=== PATIENT | male | born 1980 | race Caucasian/White ===

== ENCOUNTER 2020-08-24 11:25 | Inpatient (IN) ==
[2020-08-24 12:24] LABS: Basophils # (auto) 0.01 K/uL (0-0.2); Basophils % (auto) 0.4 %; Eosinophils # (auto) 0.02 K/uL (0-0.5); Eosinophils % (auto) 0.8 %; Hematocrit (blood only) 21.6 % (42-52); Hemoglobin 7.3 g/dL (14.0-18.0); Mean Corpuscular Hemoglobin 26.1 pg (25-34); Mean Corpuscular Hgb Conc 33.8 g/dL (32-36); Mean Corpuscular Volume 77.1 fL (80-100); Mean Platelet Volume 8.4 fL (7.4-10.4); Monocytes # (auto) 0.15 K/uL (0.11-0.59); Neutrophils # (auto) 2.02 K/uL (1.4-6.5); Neutrophils % (auto) 80.8 %; Platelet Count 152 K/uL (130-400); RDW Coefficient of Variation 15.1 % (11.5-14.5); RDW Standard Deviation 43.8 fL (36.4-46.3)
[2020-08-24 12:45] LABS: Microcytosis Present
[2020-08-24 13:25] LABS: BUN Creatinine Ratio 12.8 (10-20); Calcium 8.3 mg/dl (8.5-10.1); Creatinine Clr Calc Pharmacy 18.4 ml/min; Est GFR (African American) 12.8 ml/min; Potassium 6.1 mmol/L (3.5-5.1)
[2020-08-24] MEDS ORDERED: DEXTROSE 50% 50 ML SYRINGE IV STA (13:28)
[2020-08-24] MEDS ORDERED: CALCIUM GLUCONATE 10% 1,000 MG in SODIUM CHLORIDE 0.9% 50 ML IV STA (13:28)
[2020-08-24] MEDS ORDERED: INSULIN HUMAN REGULAR PER UNIT 5 UNITS in SYRINGE 9.9 ML IV STA (13:28)
[2020-08-24] MEDS ORDERED: SODIUM CHLORIDE 0.9% 1000ML 1,000 ML IV SCH (13:30)
[2020-08-24] MEDS ORDERED: methylPREDNISolone 125 MG/2 ML VIAL IV STA (13:41)
[2020-08-24 14:00] LABS: Appearance Urine Clear (Clear); Bacteria Urine Automated Negative (Negative); Bilirubin Urine Negative (Negative); Blood Urine 3+ (Negative); Cast Urine Automated 0 /lpf (0-5); Color Urine Yellow; Epithelial Cell Urine Auto 0-5 /lpf (0-5); Glucose Urine UA Negative (Negative); Ketones Urine Negative (Negative); Leukocyte Esterase Urine Negative (Negative); Nitrite Urine Negative (Negative); Protein Urine 3+ (Negative); RBC Urine Automated >30 /hpf (0-4); Specific Gravity Urine 1.007 (1.000-1.030); Urobilinogen Urine Negative (Negative); pH Urine 6.5 (4.5-7.5)
[2020-08-24] MEDS ORDERED: methylPREDNISolone 1,000 MG in DEXTROSE 5% 250 ML IV STA (14:35)
--- NOTE | 2020-08-24 14:42 | CT Scan Report ---
CT OF THE ABDOMEN AND PELVIS WITHOUT CONTRAST CLINICAL HISTORY: Acute kidney injury. COMPARISON STUDY: Renal ultrasound February 27, 2015. TECHNIQUE: Axial images of the abdomen and pelvis were obtained without IV contrast. Images were revi ewed in the axial, sagittal, and coronal planes. Automated exposure control was utilized for the toyin dy. A dose lowering technique was utilized adhering to the principles of ALARA. FINDINGS: Imaged portions of the lower chest demonstrate trace bilateral pleural effusions. A hiatal hernia is present. Cardiomegaly is noted. There is decreased attenuation of the cardiac blood pool. N o pneumatosis, free air or portal venous gas is present. Evaluation of the abdomen and pelvis is subo ptimal on this unenhanced exam. Mild splenomegaly is unchanged since renal ultrasound February 27 6. Bladder wall thickening is also unchanged. There is mild symmetric bilateral perinephric infiltrat ion. There is no hydronephrosis. Renal size is normal. No urinary calculi are present. Unenhanced jorge ges of the liver, adrenal glands and pancreas are unremarkable with exception of several calcificatio ns within the pancreas. There is no evidence for a bowel obstruction. The appendix is normal. There i s no abscess. Sigmoid diverticulosis is noted without evidence for acute diverticulitis. No acute fra cture or suspicious lesion is identified within the visualized skeletal structures. IMPRESSION: 1. No urinary calculi or hydronephrosis. Mild symmetric bilateral perinephric infiltration, a nonspec ific finding. 2. Decreased attenuation of the cardiac blood pool which may reflect anemia. 3. Mild anasarca. Trace bilateral pleural effusions. 4. No bowel obstruction. 5. Bladder wall thickening, likely chronic. ACT 112: Negative or not required by law. Electronically signed by: Ezoi Scott M.D. 08/24/2020 2:41 PM
[2020-08-24] MEDS ORDERED: PATIROMER CALCIUM SORBITEX 8.4 GM PACK PO ONE (15:45)
--- NOTE | 2020-08-24 15:54 | History & Physical Report ---
Date of Service August 24, 2020 Assessment & Plan (1) Hematuria, microscopic: Plan: Patient is acute kidney injury with history of chronic kidney disease. Patient is hyperkalemic, hyponatremic, depressed carbon oxide BUN/creatinine of 76 and 5.94 no significant EKG changes but mild peaked T waves. Patient did receive dextrose and insulin in the ER be given patiromer orally. CT abdomen and pelvis does not show obstruction of renal system, renal size is normal and there is mild splenomegally given concern for glomerular nephritis will use daily solumedrol 1000mg Since the patient does make urine and he is not in overt congestive heart failure continuation of intravenous fluids will be undertaken For concern for glomerulonephritis patient has 24-hour urine started, ANCA SPEP Compliment levels, anti gbm, Hepatitis panel and peripheral smear, sent (2) COVID: Plan: Patient Covid test was positive in the ER this is a PCR test patient is asymptomatic and his family is also asymptomatic and they have been vaccinated but the patient has not. 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 Discussed transfusion with the patient and he certainly wants to avoid transfusion if possible he is receiving no symptoms right now from the significant anemia he does have. Unless he develops shortness of breath tachycardia or hypotension we will hold off on transfusion. We will check a hemoglobin in the morning he has type and cross at this time (7) Benign essential hypertension: Plan: continue coreg and amlodipine plus hydralazine History of Present Illness Primary Care Provider: Juan C. 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 Incidentally the patient is also found to be Covid positive Patient otherwise has been feeling his normal self infected and working his normal job which involves construction. He typically has end of the day lower extremity edema he says this may be slightly worse over the last 2 weeks. He occasionally has dark urine which he attributes to being dehydrated from working outside and he feels this usually clears up in the evening when he drinks more liquids. He denies any other sources of blood loss or melanotic stools. He denies any epigastric pain. He has been taking Plaquenil and prednisone for a few years now does not feel he is having a flare of his arthritic symptoms. He denies any Covid related symptoms has not been around anyone with Covid but he also has not been vaccinated. He was in close contact with his parents who also have been vaccinated and are without symptoms. He says he is known he said "low kidney function" since he had his heart condition a few years ago. Allergies Allergy/AdvReac Type Severity Reaction Status Date / Time No Known Allergies Allergy Unverified 08/24/20 14:14 Home Medications Medication Instructions Recorded Confirmed Type aspirin 81 mg chewable tablet 1 tab PO QAM tab 10/30/18 08/24/20 History carvedilol 25 mg tablet 25 mg PO BID #180 tab 01/05/20 08/24/20 Rx amlodipine 10 mg tablet 10 mg PO QAM 08/24/20 08/24/20 History hydralazine 100 mg tablet 100 mg PO BID 08/24/20 08/24/20 History hydroxychloroquine 200 mg tablet 200 mg PO QAM 08/24/20 08/24/20 History (Plaquenil) losartan 25 mg tablet 25 mg PO QAM 08/24/20 08/24/20 History naproxen sodium 220 mg tablet 220 mg PO Q12H PRN 08/24/20 08/24/20 History (Aleve) prednisone 5 mg tablet 5 mg PO QAM 08/24/20 08/24/20 History spironolactone 25 mg tablet 25 mg PO QAM 08/24/20 08/24/20 History Past Med/Surg History Medical History CAD (coronary artery disease) kaitlin scan shows RCA infarct 2016 Hematuria, microscopic Hypertensive emergency Lupus (systemic lupus erythematosus) Smokeless tobacco use Surgical History No significant past surgical history Family History Uncle Myocardial infarction Mother Diabetes Hypertension Father Hypertension Denies family history of Ovarian cancer Prostate cancer Breast cancer Colorectal cancer Social History Smoking Status: Former smoker Second Hand Exposure: Yes; Do You Dip or Chew Tobacco: Yes; Hx Alcohol Use: Yes Alcohol type: hard liquor Hx Substance Use: No Preferred Language: Argentine Communication Ability: Effective Visual Impairment: No Limitations Hearing Ability: Normal Beliefs That Will Affect Care: None marital status: Single Current Living Situation: Alone current occupational status: employed current occupation: Construction Feels Safe at Home: Yes Childhood Exposure to Second-Hand Smoke: No Dental Care, Regularly: No Physical Activity Frequency: 5-6 Times per Week Seatbelt Use: always Sunscreen Use: No Review of Systems Review of Systems: Mild distress and fatigue no headache, no visual changes no speech or swallowing issues no chest pain, pressure or palpitations no shortness of breath, continues persistent mild dyspnea on exertion, no cough or wheezes no abdominal pain, nausea or vomiting, diarrhea or constipation no dysuria, hematuria or frequency, some darkened urine but no gross hematuria no focal joint pain, does have persistent lower extremity swelling worse at the end of the day no back pain, CVA tenderness or radicular pain no bruising, bleeding or rashes no focal signs of weakness or numbness or altered sensation no complaints of anxiety or depression.. Physical Exam Physical Exam: The patient appeared well nourished and normally developed. Vital signs as documented. Head exam is normocephalic atraumatic Neck is without JVD, thyromegaly, or carotid bruits. Lungs are clear to auscultation, no focal loss of breath sounds Cardiac exam, Rhythm is regular.. No murmurs, rubs or gallops. Abdominal exam reveals normal bowel sounds, soft non tender, no masses, no organomegaly Extremities are 1+ edematous equal bilaterally, both pedal pulses are present Neurologic exam is alert and oriented, no focal loss of strength or sensation Skin is without bruises or rashes Psychologically is without concerns for anxiety or depression Results & Data Results & Data ([facility]) Vital Signs (Past 12 Hours) Vital Signs Temp Pulse Pulse Resp BP BP Pulse Ox 08/24/20 14:30 70 20 144/85 H 98 08/24/20 13:30 69 20 138/92 96 08/24/20 13:00 70 21 135/90 98 08/24/20 12:30 70 18 137/88 97 08/24/20 12:25 70 22 144/88 H 97 08/24/20 12:20 98.6 F 84 78 18 140/90 100 08/24/20 12:00 70 17 140/90 97 08/24/20 11:44 98.4 F 72 18 128/101 H 98 08/24/20 11:43 71 26 H 128/101 H 97 08/24/20 11:29 97.9 F 75 18 136/83 98 Code Status & VTE Plan VTE Prophylaxis Plan VTE Prophylaxis will be ordered: Yes PG Care Time/CCT Total # of Minutes Spent Total Time Spent with Patient: Total time spent is greater than 50% in coordination of care (as documented) at patient's floor/unit and/or counseling patient: Coding Level of Care Code 77743 Initial Inpt Care Lvl 3 Diagnoses CAD (coronary artery disease) I25.10 Associated angina: without angina Coronary Disease-Associated Artery/Lesion type: [place] artery [place] vs. transplanted heart: [place] heart Hematuria, microscopic R31.29 Benign essential hypertension I10 Anemia D64.9 Hyponatremia E87.1 Hyperkalemia E87.5 COVID U07.1 (1) CAD (coronary artery disease) Associated angina: without angina Coronary Disease-Associated Artery/Lesion type: [place] artery [place] vs. transplanted heart: [place] heart Qualified Code(s): I25.10 - Atherosclerotic heart disease of [place] coronary artery without angina pectoris
--- NOTE | 2020-08-24 16:23 | Emergency Department Note ---
History of Present Illness General Chief complaint: Referred by Doctor Stated complaint: BLOOD TRANSFUSION Time Seen by Provider: 08/24/20 11:46 History of Present Illness Provider complaint: Abnormal blood work Maximum Pain Intensity: 0 Associated symptoms: no confusion, no chest pain, no cough, no diaphoresis, no fever/chills, no headaches, no malaise, no nausea/vomiting, no rash, no seizure, no shortness of breath, no syncope or no weakness 40-year-old male presents emergency department for abnormal blood work. Patient states he had blood work done by his mortgage underwriter in [place] and was told that he has a high potassium and low blood count. He states he spoke with his PCP Dr. Juan Duncan referred him to the emergency department. Patient is currently denying any symptoms. No nausea vomiting diarrhea headache chest pain d ifficulty breathing hematochezia melena dysuria hematuria. Patient does state that he sees rheumatology for possible multijoint arthritis. He states they have been working him up for rheumatoid arthritis however that he has never been formally diagnosed with that. Patient is on Plaquenil as well as prednisone chronically. Patient also states he was told he might have lupus but that diagnosis is never been confirmed. Home Medications Medication Instructions Recorded Confirmed Type aspirin 81 mg chewable tablet 1 tab PO QAM tab 10/30/18 08/24/20 History carvedilol 25 mg tablet 25 mg PO BID #180 tab 01/05/20 08/24/20 Rx amlodipine 10 mg tablet 10 mg PO QAM 08/24/20 08/24/20 History hydralazine 100 mg tablet 100 mg PO BID 08/24/20 08/24/20 History hydroxychloroquine 200 mg tablet 200 mg PO QAM 08/24/20 08/24/20 History (Plaquenil) losartan 25 mg tablet 25 mg PO QAM 08/24/20 08/24/20 History naproxen sodium 220 mg tablet 220 mg PO Q12H PRN 08/24/20 08/24/20 History (Aleve) prednisone 5 mg tablet 5 mg PO QAM 08/24/20 08/24/20 History spironolactone 25 mg tablet 25 mg PO QAM 08/24/20 08/24/20 History Allergies Allergy/AdvReac Type Severity Reaction Status Date / Time No Known Allergies Allergy Unverified 08/24/20 14:14 Past Med/Surg History Medical History CAD (coronary artery disease) kaitlin scan shows RCA infarct 2016 Hematuria, microscopic Hypertensive emergency Lupus (systemic lupus erythematosus) Smokeless tobacco use Surgical History No significant past surgical history Family History Uncle Myocardial infarction Mother Diabetes Hypertension Father Hypertension Denies family history of Ovarian cancer Prostate cancer Breast cancer Colorectal cancer Social History Smoking Status: Never smoker Second Hand Exposure: Yes; Hx Alcohol Use: Yes Hx Substance Use: No Preferred Language: Urdu Visual Impairment: No Limitations Hearing Ability: Normal marital status: Single Current Living Situation: Alone current occupational status: employed current occupation: Construction Feels Safe at Home: Yes Childhood Exposure to Second-Hand Smoke: No Dental Care, Regularly: No Physical Activity Frequency: 5-6 Times per Week Seatbelt Use: always Sunscreen Use: No Review of Systems See HPI for pertinent positives & negatives. Physical Exam Vital Signs Vital Signs - 24 hr 08/24/20 11:29 08/24/20 11:43 08/24/20 11:44 Temperature 36.6 C 36.9 C Temperature Source Temporal Artery Scan Oral Pulse Rate 75 71 Pulse Rate [Right Finger] 72 Pulse Rate from SpO2 Sensor 70 Pulse Rhythm Pulse Rhythm [Right Finger] Regular Respiratory Rate 18 26 H 18 Respiratory Effort / Characteristics Non-Labored Non-Labored Respiratory Depth Normal Normal Respiratory Pattern Blood Pressure 136/83 128/101 H Blood Pressure [Right Arm] 128/101 H Blood Pressure Mean 100 110 Blood Pressure Mean [Right Arm] 110 Blood Pressure Position [Right Arm] Lying Pulse Oximetry 98 97 98 Oxygen Delivery Method Room Air Sepsis Recent Fever Within 48 Hours No Sepsis New/Unexplained Change in Mental Status No Sepsis Action Taken by Nursing No Action Required 08/24/20 12:00 08/24/20 12:20 08/24/20 12:25 Temperature 37 C Temperature Source Oral Pulse Rate 70 84 70 Pulse Rate [Right Finger] 78 Pulse Rate from SpO2 Sensor 70 71 Pulse Rhythm Regular Pulse Rhythm [Right Finger] Regular Respiratory Rate 17 18 22 Respiratory Effort / Characteristics Non-Labored Respiratory Depth Normal Respiratory Pattern Regular Blood Pressure 140/90 144/88 H Blood Pressure [Right Arm] 140/90 Blood Pressure Mean 106 106 Blood Pressure Mean [Right Arm] 106 Blood Pressure Position [Right Arm] Pulse Oximetry 97 100 97 Oxygen Delivery Method Room Air Sepsis Recent Fever Within 48 Hours Sepsis New/Unexplained Change in Mental Status Sepsis Action Taken by Nursing 08/24/20 12:30 08/24/20 13:00 08/24/20 13:30 Temperature Temperature Source Pulse Rate 70 70 69 Pulse Rate [Right Finger] Pulse Rate from SpO2 Sensor 70 70 69 Pulse Rhythm Pulse Rhythm [Right Finger] Respiratory Rate 18 21 20 Respiratory Effort / Characteristics Respiratory Depth Respiratory Pattern Blood Pressure 137/88 135/90 138/92 Blood Pressure [Right Arm] Blood Pressure Mean 104 105 107 Blood Pressure Mean [Right Arm] Blood Pressure Position [Right Arm] Pulse Oximetry 97 98 96 Oxygen Delivery Method Sepsis Recent Fever Within 48 Hours Sepsis New/Unexplained Change in Mental Status Sepsis Action Taken by Nursing 08/24/20 14:30 08/24/20 15:00 Temperature Temperature Source Pulse Rate 70 73 Pulse Rate [Right Finger] Pulse Rate from SpO2 Sensor 70 73 Pulse Rhythm Pulse Rhythm [Right Finger] Respiratory Rate 20 21 Respiratory Effort / Characteristics Respiratory Depth Respiratory Pattern Blood Pressure 144/85 H 133/87 Blood Pressure [Right Arm] Blood Pressure Mean 104 102 Blood Pressure Mean [Right Arm] Blood Pressure Position [Right Arm] Pulse Oximetry 98 98 Oxygen Delivery Method Sepsis Recent Fever Within 48 Hours Sepsis New/Unexplained Change in Mental Status Sepsis Action Taken by Nursing Physical Exam GENERAL: He is oriented to person, place, and time. He appears well-developed and well-nourished. He does not appear distressed. HENT: Exam performed. - Head: Normocephalic and atraumatic. - Right Ear: External ear normal. No mastoid tenderness. - Left Ear: External ear normal. No mastoid tenderness. - Mouth/Throat: The oropharynx is clear and moist. No trismus in the jaw. No dental abscesses or uvula swelling. No oropharyngeal exudate or tonsillar abscesses. EYES: Conjunctivae and EOM are normal. Pupils are equal, round, and reactive to light. Right eye exhibits no discharge. Left eye exhibits no discharge. No scleral icterus. NECK: Normal range of motion. Neck supple. No JVD present. No spinous process tenderness present. No carotid bruit present. No rigidity. No tracheal deviation and normal range of motion present. No Brudzinski's sign and no Kernig's sign noted. CV: Normal rate, regular rhythm, normal heart sounds and intact distal pulses. There is no peripheral edema. Palpable radial pulses bue. PULM/CHEST: Effort normal and breath sounds normal. No respiratory distress. No stridor. He has no wheezes. He has no rales. - Chest Wall: He exhibits no tenderness. ABD: The abdomen is soft. Bowel sounds are normal. He has no distension. No mass is present. There is no tenderness. There is no rebound, no guarding, no Mur phy's sign and no tenderness at McBurney's point. Rovsig negative. Rectal: Hemoccult negative. No prior blood per rectum. MUSC/SKEL: Normal range of motion. There is no peripheral edema, tenderness or deformity. LYMPH: No cervical adenopathy. NEURO: He is alert and oriented to person, place, and time. He has normal strength. No cranial nerve deficit or sensory deficit. Coordination and gait normal. GCS eye subscore is 4. GCS verbal subscore is 5. GCS motor subscore is 6. Cerebellar tests wnl. SKIN: Skin is warm and dry. He is not diaphoretic. PSYCH: He has a normal mood and affect. Behavior is normal. Judgment and thought content normal. Course Course 1146: The patient was evaluated in room C7. A complete history and physical exam was performed Cardiac monitoring: An order was placed for continuous cardiac monitoring. The monitor shows a rate of 70 with sinus rhythm 1340: Vital signs stable. Labs show hemoglobin of 7.1. Sodium 121. Potassium 6.1. Creatinine 5.94. BUN 76. Patient will be treated with calcium gluconate 1 amp D50 and 5 units of insulin. Discussed the case with nephrology on-call Dr. Velarde and I gave the patient's history to Dr. Velarde. 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 He states he can be on consult and the patient does not need emergent dialysis at this time. Case was discussed with [facility] hospitalist need COOK FRY who stated to admit to Dr. Harry. Urinalysis pending and CT of the abdomen ordered. 1445: Vital signs stable. CT of the abdomen shows no kidney stones or hydronephrosis. Patient is Covid positive. Administered Medications Sodium Chloride (Nss 1000ml) 1,000 mls @ 125 mls/hr IV .Q8H CRISTOBAL Stop: 09/23/20 13:29 Last Admin: 08/24/20 14:25 Dose: 125 mls/hr Documented by: [id number] Discontinued Medications Dextrose (Dextrose 50% 50 Ml Syringe) 50 ml IV NOW STA Stop: 08/24/20 13:29 Last Admin: 08/24/20 14:24 Dose: 50 ml Documented by: [id number] Calcium Gluconate 1,000 mg/ (Sodium Chloride) 60 mls @ 240 mls/hr IV NOW STA Stop: 08/24/20 13:42 Last Infusion: 08/24/20 14:35 Dose: 0 mls/hr Documented by: [id number] Admin: 08/24/20 14:24 Dose: 240 mls/hr Documented by: [id number] Insulin Human Regular 5 units/ (Syringe) 9.9 mls @ 3 mls/sec IV ONE STA Stop: 08/24/20 13:29 Last Admin: 08/24/20 14:24 Dose: 3 mls/sec Documented by: [id number] Cosigned by: [id number] Methylprednisolone 1,000 mg/ (Dextrose) 266 mls @ 266 mls/hr IV ONE STA Stop: 08/24/20 15:34 Last Admin: 08/24/20 15:04 Dose: 266 mls/hr Documented by: [id number] Patiromer (Patiromer Calcium Sorbitex 8.4 Gm Pack) 8.4 gm PO ONE ONE Stop: 08/24/20 15:46 Last Admin: 08/24/20 16:16 Dose: 8.4 gm Documented by: [id number] Critical Care Time Prolonged Care Time Prolonged Care Time: Yes Total Prolonged Care Time: 38 I have personally spent greater than 38 minutes of critical care time in the direct management of this patient. This includes bedside care, interpretation of diagnostic studies, and testing, discussion with consultants, patient, and family members, and other required patient management activities. This 38 minutes is in excess of all separately billable procedures. Medical Decision Making Laboratory Data Result diagrams: 08/24/20 12:04 08/24/20 12:04 Lab Results 08/24/20 08/24/20 08/24/20 Range/Units 12:04 12:04 12:04 WBC 2.50 L (4.8-10.8) K/uL RBC 2.80 L (4.7-6.1) M/uL Hgb 7.3 L (14.0-18.0) g/dL Hct 21.6 L (42-52) % MCV 77.1 L (80-100) fL MCH 26.1 (25-34) pg MCHC 33.8 (32-36) g/dL RDW Std Deviation 43.8 (36.4-46.3) fL RDW Coeff of Rosa Elena 15.1 H (11.5-14.5) % Plt Count 152 (130-400) K/uL MPV 8.4 (7.4-10.4) fL Immature Gran % (Auto) 0.0 % Neut % (Auto) 80.8 % Lymph % (Auto) 12.0 % [place] % (Auto) 6.0 % Eos % (Auto) 0.8 % Baso % (Auto) 0.4 % Neut # (Auto) 2.02 (1.4-6.5) K/uL Lymph # (Auto) 0.30 L (1.2-3.4) K/uL [place] # (Auto) 0.15 (0.11-0.59) K/uL Eos # (Auto) 0.02 (0-0.5) K/uL Baso # (Auto) 0.01 (0-0.2) K/uL Immature Gran # (Auto) 0.00 (0.00-0.02) K/uL Microcytosis Present ESR (0-15) mm/hr Sodium 121 L (136-145) mmol/L Potassium 6.1 H* (3.5-5.1) mmol/L Chloride 93 L (98-107) mmol/L Carbon Dioxide 19 L (21-32) mmol/L Anion Gap 9.0 (3-11) BUN 76 H (7-18) mg/dl Creatinine 5.94 H* (0.6-1.4) mg/dl Est Cr Clr Drug Dosing 18.4 ml/min Est GFR ( Amer) 12.8 ml/min Est GFR (Non-Af Amer) 11.0 ml/min BUN/Creatinine Ratio 12.8 (10-20) Glucose 90 (70-99) mg/dl POC Glucose (70-99) mg/dl Calcium 8.3 L (8.5-10.1) mg/dl Urine Color Urine Appearance (Clear) Urine pH (4.5-7.5) Ur Specific [place] (1.000-1.030) Urine Protein (Negative) Urine Glucose (UA) (Negative) Urine Ketones (Negative) Urine Blood (Negative) Urine Nitrite (Negative) Urine Bilirubin (Negative) Urine Urobilinogen (Negative) Ur Leukocyte Esterase (Negative) Urine WBC (Auto) (0-5) /hpf Urine RBC (Auto) (0-4) /hpf U Hyaline Cast (Auto) (0-5) /lpf U Epithel Cells (Auto) (0-5) /lpf Urine Bacteria (Auto) (Negative) COVID-19 Eval Order SARS-CoV-2 (PCR) (Negative) Blood Type B Positive Antibody Screen NEGATIVE 08/24/20 08/24/20 08/24/20 Range/Units 12:04 13:35 13:35 WBC (4.8-10.8) K/uL RBC (4.7-6.1) M/uL Hgb (14.0-18.0) g/dL Hct (42-52) % MCV (80-100) fL MCH (25-34) pg MCHC (32-36) g/dL RDW Std Deviation (36.4-46.3) fL RDW Coeff of Rosa Elena (11.5-14.5) % Plt Count (130-400) K/uL MPV (7.4-10.4) fL Immature Gran % (Auto) % Neut % (Auto) % Lymph % (Auto) % [place] % (Auto) % Eos % (Auto) % Baso % (Auto) % Neut # (Auto) (1.4-6.5) K/uL Lymph # (Auto) (1.2-3.4) K/uL [place] # (Auto) (0.11-0.59) K/uL Eos # (Auto) (0-0.5) K/uL Baso # (Auto) (0-0.2) K/uL Immature Gran # (Auto) (0.00-0.02) K/uL Microcytosis ESR 25 H (0-15) mm/hr Sodium (136-145) mmol/L Potassium (3.5-5.1) mmol/L Chloride (98-107) mmol/L Carbon Dioxide (21-32) mmol/L Anion Gap (3-11) BUN (7-18) mg/dl Creatinine (0.6-1.4) mg/dl Est Cr Clr Drug Dosing ml/min Est GFR ( Amer) ml/min Est GFR (Non-Af Amer) ml/min BUN/Creatinine Ratio (10-20) Glucose (70-99) mg/dl POC Glucose (70-99) mg/dl Calcium (8.5-10.1) mg/dl Urine Color Urine Appearance (Clear) Urine pH (4.5-7.5) Ur Specific [place] (1.000-1.030) Urine Protein (Negative) Urine Glucose (UA) (Negative) Urine Ketones (Negative) Urine Blood (Negative) Urine Nitrite (Negative) Urine Bilirubin (Negative) Urine Urobilinogen (Negative) Ur Leukocyte Esterase (Negative) Urine WBC (Auto) (0-5) /hpf Urine RBC (Auto) (0-4) /hpf U Hyaline Cast (Auto) (0-5) /lpf U Epithel Cells (Auto) (0-5) /lpf Urine Bacteria (Auto) (Negative) COVID-19 Eval Order Covid19 at [facility] SARS-CoV-2 (PCR) POSITIVE A* (Negative) Blood Type Antibody Screen 08/24/20 08/24/20 Range/Units 13:35 15:28 WBC (4.8-10.8) K/uL RBC (4.7-6.1) M/uL Hgb (14.0-18.0) g/dL Hct (42-52) % MCV (80-100) fL MCH (25-34) pg MCHC (32-36) g/dL RDW Std Deviation (36.4-46.3) fL RDW Coeff of Rosa Elena (11.5-14.5) % Plt Count (130-400) K/uL MPV (7.4-10.4) fL Immature Gran % (Auto) % Neut % (Auto) % Lymph % (Auto) % [place] % (Auto) % Eos % (Auto) % Baso % (Auto) % Neut # (Auto) (1.4-6.5) K/uL Lymph # (Auto) (1.2-3.4) K/uL [place] # (Auto) (0.11-0.59) K/uL Eos # (Auto) (0-0.5) K/uL Baso # (Auto) (0-0.2) K/uL Immature Gran # (Auto) (0.00-0.02) K/uL Microcytosis ESR (0-15) mm/hr Sodium (136-145) mmol/L Potassium (3.5-5.1) mmol/L Chloride (98-107) mmol/L Carbon Dioxide (21-32) mmol/L Anion Gap (3-11) BUN (7-18) mg/dl Creatinine (0.6-1.4) mg/dl Est Cr Clr Drug Dosing ml/min Est GFR ( Amer) ml/min Est GFR (Non-Af Amer) ml/min BUN/Creatinine Ratio (10-20) Glucose (70-99) mg/dl POC Glucose 115 H (70-99) mg/dl Calcium (8.5-10.1) mg/dl Urine Color Yellow Urine Appearance Clear (Clear) Urine pH 6.5 (4.5-7.5) Ur Specific [place] 1.007 (1.000-1.030) Urine Protein 3+ H (Negative) Urine Glucose (UA) Negative (Negative) Urine Ketones Negative (Negative) Urine Blood 3+ H (Negative) Urine Nitrite Negative (Negative) Urine Bilirubin Negative (Negative) Urine Urobilinogen Negative (Negative) Ur Leukocyte Esterase Negative (Negative) Urine WBC (Auto) 1-5 (0-5) /hpf Urine RBC (Auto) >30 H (0-4) /hpf U Hyaline Cast (Auto) 0 (0-5) /lpf U Epithel Cells (Auto) 0-5 (0-5) /lpf Urine Bacteria (Auto) Negative (Negative) COVID-19 Eval Order SARS-CoV-2 (PCR) (Negative) Blood Type Antibody Screen Imaging Data Radiologist's Impression: Abdomen/Pelvis CT 08/24/20 13:30 CT OF THE ABDOMEN AND PELVIS WITHOUT CONTRAST CLINICAL HISTORY: Acute kidney injury. COMPARISON STUDY: Renal ultrasound February 27, 2015. TECHNIQUE: Axial images of the abdomen and pelvis were obtained without IV contrast. Images were reviewed in the axial, sagittal, and coronal planes. Automated exposure control was utilized for the study. A dose lowering technique was utilized adhering to the principles of ALARA. FINDINGS: Imaged portions of the lower chest demonstrate trace bilateral pleural effusions. A hiatal hernia is present. Cardiomegaly is noted. There is decreased attenuation of the cardiac blood pool. No pneumatosis, free air or portal venous gas is present. Evaluation of the abdomen and pelvis is suboptimal on this unenhanced exam. Mild splenomegaly is unchanged since renal ultrasound February 27, 2015. Bladder wall thickening is also unchanged. There is mild symmetric bilateral perinephric infiltration. There is no hydronephrosis. Renal size is normal. No urinary calculi are present. Unenhanced images of the liver, adrenal glands and pancreas are unremarkable with exception of several calcifications within the pancreas. There is no evidence for a bowel obstruction. The appendix is normal. There is no abscess. Sigmoid diverticulosis is noted without evidence for acute diverticulitis. No acute fracture or suspicious lesion is identified within the visualized skeletal structures. IMPRESSION: 1. No urinary calculi or hydronephrosis. Mild symmetric bilateral perinephric infiltration, a nonspecific finding. 2. Decreased attenuation of the cardiac blood pool which may reflect anemia. 3. Mild anasarca. Trace bilateral pleural effusions. 4. No bowel obstruction. 5. Bladder wall thickening, likely chronic. ACT 112: Negative or not required by law. Electronically signed by: Ezio Scott M.D. 08/24/2020 2:41 PM ECG Data Indication: + other (arrythmia) Rate (beats per minute): 69 Rhythm: + normal sinus ECG Intervals/blocks: + First degree AV block ECG ST segments: + Normal ST segments MDM Narrative 1146: The patient was evaluated in room C7. A complete history and physical exam was performed Cardiac monitoring: An order was placed for continuous cardiac monitoring. The monitor shows a rate of 70 with sinus rhythm 1340: Vital signs stable. Labs show hemoglobin of 7.1. Sodium 121. Potassium 6.1. Creatinine 5.94. BUN 76. Patient will be treated with calcium gluconate 1 amp D50 and 5 units of insulin. Discussed the case with nephrology on-call Dr. Velarde and I gave the patient's history to Dr. Velarde. 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 He states he can be on consult and the patient does not need emergent dialysis at this time. Case was discussed with [facility] hospitalist need COOK FRY who stated to admit to Dr. Harry. Urinalysis pending and CT of the abdomen ordered. 1445: Vital signs stable. CT of the abdomen shows no kidney stones or hydronephrosis. Patient is Covid positive. Impression & Plan Acute hyperkalemia, COVID, Acute hyponatremia, TARA (acute kidney injury) Discharge Plan Visit Data Chief Complaint: Referred by Doctor Stated Complaint: BLOOD TRANSFUSION ED Provider: Pepe Jaime Discharge Problem: Acute hyperkalemia, COVID, Acute hyponatremia, TARA (acute kidney injury) Patient Disposition: Admitted As Inpatient Forms Stand Alone Forms: My [facility] Prescriptions Prescriptions: No Action carvedilol 25 mg tablet 25 mg PO BID Qty: 180 RF: 1 aspirin 81 mg tablet,chewable 1 tab PO QAM RF: 0 prednisone 5 mg Tablet 5 mg PO QAM RF: 0 naproxen sodium [Aleve] 220 mg Tablet 220 mg PO Q12H PRN (Reason: Pain) RF: 0 spironolactone 25 mg tablet 25 mg PO QAM RF: 0 amlodipine 10 mg tablet 10 mg PO QAM RF: 0 hydralazine 100 mg tablet 100 mg PO BID RF: 0 losartan 25 mg tablet 25 mg PO QAM RF: 0 hydroxychloroquine [Plaquenil] 200 mg tablet 200 mg PO QAM RF: 0 Referrals Referrals: Juan Summers III, CRNP [Primary Care Provider] -
--- NOTE | 2020-08-24 17:16 | Electrocardiogram Report ---
Test Reason : Blood Pressure : / mmHG Vent. Rate : 069 BPM Atrial Rate : 069 BPM P-R Int : 234 ms QRS Dur : 116 ms QT Int : 412 ms P-R-T Axes : 031 036 056 degrees QTc Int : 441 ms Sinus rhythm with 1st degree A-V block Otherwise normal ECG When compared with ECG of 28-FEB-2015 07:52, ID interval has increased ST no longer elevated in Lateral leads Confirmed by Zenon Schmitz ([id number]) on 08/24/2020 5:15:53 PM Referred By: REFERRED SELF Confirmed By:Dung Schmitz
[2020-08-24] MEDS ORDERED: NORMOSOL-R 500 ML IV ONE (18:34)
[2020-08-24] MEDS ORDERED: SODIUM BICARBONATE 650 MG TAB PO ONE (19:15)
[2020-08-24 19:28] LABS: Reticulocyte % 0.6 % (0.5-2.0); Reticulocytes # 0.02 10^6/uL (0.02-0.10)
[2020-08-24 19:37] LABS: Iron 18 mcg/dl (35-175); Total Iron Binding Capacity 311 mcg/dl (250-450)
--- NOTE | 2020-08-24 19:53 | Nephrology Consultation ---
Date of Consultation August 24, 2020 Assessment & Plan (1) TARA (acute kidney injury): Non-oliguric per report. TARA on CKD. CKD IIIb at baseline with a serum creatinine of 2.0 mg/dL (as recently as 6 months ago). No obstruction on CT. UA: +protein and RBCs. Losartan and spironolactone have been appropriately held. Volume status appears euvolemic to slightly hypervolemic. Myron does not have decompensated heart failure. His blood pressure is appropriate. Renovascular imaging has been deferred at this time pending additional monitoring and given normal BP. Etiology unclear but clinical history concerning for possible acute GN. Absence of WBCs on microscopy as well as no definite RBC casts or dysmorphic RBCs however raise the possibility that renal dysfunction is more chronic in nature or possible related to another underlying condition. Given the advanced nature of his kidney dysfunction and autoimmune history, Solumedrol 1 gram daily has been empirically started. Ultimately, I suspect kidney biopsy will be necessary to make the diagnosis. In the interim, a serologic evaluation including serum complement levels has been requested. Strict I/O's to be monitored. Metabolic profile to be repeated tonight and tomorrow AM. I discussed potential future indications for ROVING SIZER in detail with Myron today. No emergent indication for dialysis at this time. (2) COVID: (3) Hyperkalemia: Patiromer and IVF provided. Repeat levels pending. Non-oliguric. Low potassium diet. (4) Hyponatremia: Hypervolemic in setting of renal failure. PO fluid restriction to 1.5 L/d established. (5) Anemia: Peripheral smear did not demonstrate evidence of TMA. Iron studies and stool occult blood pending. Chronicity unclear. Appears asymptomatic. (6) Positive ALISON (antinuclear antibody): (7) Hematuria, microscopic: Unclear if glomerular or non-glomerular. Will repeat Urine studies in the AM. No WBC consistent with infectious or inflammatory cystitis. (8) Mixed connective tissue disease: (9) Benign essential hypertension: BP acceptable. Continue amlodipine and carvedilol as Rx. Hold spironolactone and losartan. (10) Proteinuria: 24 hours UPEP ordered. History of Present Illness Reason for Consultation: TARA, hyperkalemia Requesting Physician: Krzysztof Newsome MD Attending Physician: Krzysztof Newsome MD History of Present Illness Mr. Myron Meng is a 40 year-old male with hypertension, coronary artery disease, mixed connective tissue disease, and chronic kidney disease. He was referred to the ER today due to abnormal laboratory studies, notably acute kidney injury and hyperkalemia. Myron feels well and denies any complaints. He relates that he may have seen a slight increase in chronic dependent lower extremity edema recently. But overall, he feels healthy. Interestingly, he did test COVID+ in the ER. There is no known exposure. Myron was admitted to [facility] in 2016 with accelerated hypertension and chest pain. Troponin notably elevated with diffuse LV hypokinesis and reduced LVEF. Cardiac catheterization reportedly demonstrated non obstructive coronary disease. He has followed in the cardiology clinic with Dr. Ayaal and Dr. Gomez. Follow up nuclear stress demonstrated an inferior scar. Most recent MUKUL demonstrating at least mild LVH with normal LVEF and no significant valvular heart disease. Blood pressure has been controlled with carvedilol, spironolactone, hydralazine, and losartan. Myron has been tolerating therapy well. A couple years ago, he underwent evaluation for diffuse arthritis symmetrically affecting predominately the small joints of his hands as well as wrists and shoulders. Evaluation notable for +ALISON and +dsDNA. Myron has followed in the rheumatology clinic in [place] with Dr. Chin. He has been maintained on prednisone and approximately 1 year ago Plaquenil was added. Diagnosis has been considered mixed connective tissue disease. Myron denies any other system involvement. Symptoms have been reasonably controlled with no recent flares, synovitis, or effusions. He denies any rashes. A couple weeks ago, Myron developed a lesion on the inside of his left leg. He had an itchy red lump for several days that he scratched at leaving a circumscribed scar. He did not remove a tick. There is a persistent area of induration. Myron denies any change in urine output. He has not experienced any recent GI symptoms. Bowel movements have been normal. He denies any melena or hematochezia. Appetite is good. He has not had any fatigue. Activity tolerance is very good. 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 Baseline creatinine has been ~2.0 mg/dL since 2016. yMron had suffered TARA during his hospitalization at [facility]. He has been evaluated in the nephrology clinic by Dr. Stubbs as well as Dr. Monzon in the past. Records from evaluation by Dr. Stubbs in 2019 were reviewed today. Nephrotic A3 range proteinuria was noted at that time. Unfortunately due to lack of follow up there was no additional evaluation. Myron has not maintained consistent follow up with any gum mixer. Prior to his recent labs, kidney function was last checked ~6 months ago and creatinine was reportedly stable at 2.0 mg/dL at that time. Myron rarely consumes NSAIDS. There is no history of STI or IVDA. CT scan from the ER was personally reviewed. Mild perinephric infiltration noted but kidneys otherwise normal in appearance. Mild anasarca and small bilateral pleural effusions. Bladder wall thickening noted. There is no hydronephrosis or hydroureter. Urine demonstrates 3+ protein and >30 RBC per hpf. I personally performed microscopic evaluation of the urine and did not identify any cellular casts or dysmorphic RBC's. Myron has not had gross hematuria. I discussed the patient in detail with the ER attending and Dr. Newsome. Myron has been reportedly voiding a good amount of urine since admission. Allergies Allergy/AdvReac Type Severity Reaction Status Date / Time No Known Allergies Allergy Unverified 08/24/20 14:14 Home Medications Medication Instructions Recorded Confirmed Type aspirin 81 mg chewable tablet 1 tab PO QAM tab 10/30/18 08/24/20 History carvedilol 25 mg tablet 25 mg PO BID #180 tab 01/05/20 08/24/20 Rx amlodipine 10 mg tablet 10 mg PO QAM 08/24/20 08/24/20 History hydralazine 100 mg tablet 100 mg PO BID 08/24/20 08/24/20 History hydroxychloroquine 200 mg tablet 200 mg PO QAM 08/24/20 08/24/20 History (Plaquenil) losartan 25 mg tablet 25 mg PO QAM 08/24/20 08/24/20 History naproxen sodium 220 mg tablet 220 mg PO Q12H PRN 08/24/20 08/24/20 History (Aleve) prednisone 5 mg tablet 5 mg PO QAM 08/24/20 08/24/20 History spironolactone 25 mg tablet 25 mg PO QAM 08/24/20 08/24/20 History Patient History Medical History CAD (coronary artery disease) kaitlin scan shows RCA infarct 2016 Hematuria, microscopic Hypertensive emergency Lupus (systemic lupus erythematosus) Smokeless tobacco use Surgical History No significant past surgical history Family History Uncle Myocardial infarction Mother Diabetes Hypertension Father Hypertension Denies family history of Ovarian cancer Prostate cancer Breast cancer Colorectal cancer Social History Smoking Status: Former smoker Second Hand Exposure: Yes; Do You Dip or Chew Tobacco: Yes; Hx Alcohol Use: Yes Alcohol type: hard liquor Hx Substance Use: No Preferred Language: Yoruba Communication Ability: Effective Visual Impairment: No Limitations Hearing Ability: Normal Beliefs That Will Affect Care: None marital status: Single Current Living Situation: Alone current occupational status: employed current occupation: Construction Feels Safe at Home: Yes Childhood Exposure to Second-Hand Smoke: No Dental Care, Regularly: No Physical Activity Frequency: 5-6 Times per Week Seatbelt Use: always Sunscreen Use: No Review of Systems Constitutional: no weight loss, no weight gain and no problem reported Eyes: no problem reported Ear, Nose, Mouth, Throat: no problem reported Respiratory: no problem reported Cardiovascular: no problem reported Gastrointestinal: no problem reported Musculoskeletal: no problem reported Integumentary: no problem reported Neurologic: no problem reported Psychiatric: no problem reported Endocrine: no problem reported Hematologic / Lymphatic: no problem reported Physical Exam Constitutional: well developed; no acute distress Eyes: no scleral abnormality and no corneal abnormality ENMT: Mouth: no oral mucosal abnormality and oral mucous membranes not dry Neck: normal visual inspection and trachea midline Respiratory: normal respiratory effort Auscultation: lungs clear to auscultation bilaterally Cardiovascular: Rate/Rhythm: regular rate Heart Sounds: normal S1 and normal S2 Extremities: + edema Musculoskeletal: Extremities: no cyanosis and no clubbing Skin: normal turgor and + lesion (indurated healed lesion on inside of the bose); no rashes Neurologic: Motor/Sensory: no tremor and no asterixis Psychiatric: Orientation: alert and oriented x 3 Results & Data ([facility]) Vital Signs (Past 12 Hours) Vital Signs Temp Pulse Pulse Resp BP BP Pulse Ox 08/24/20 18:34 36.8 C 78 16 145/88 H 98 08/24/20 18:15 37 C 74 18 118/72 98 08/24/20 18:00 37 C 76 18 127/68 99 08/24/20 16:26 37 C 73 18 142/88 H 98 08/24/20 15:00 73 21 133/87 98 08/24/20 14:30 70 20 144/85 H 98 08/24/20 13:30 69 20 138/92 96 08/24/20 13:00 70 21 135/90 98 08/24/20 12:30 70 18 137/88 97 08/24/20 12:25 70 22 144/88 H 97 08/24/20 12:20 37 C 84 78 18 140/90 100 08/24/20 12:00 70 17 140/90 97 08/24/20 11:44 36.9 C 72 18 128/101 H 98 08/24/20 11:43 71 26 H 128/101 H 97 08/24/20 11:29 36.6 C 75 18 136/83 98 Laboratory Results Laboratory Results - last 24 hr 08/24/20 08/24/20 08/24/20 12:04 12:04 12:04 WBC 2.50 L RBC 2.80 L Hgb 7.3 L Hct 21.6 L MCV 77.1 L MCH 26.1 MCHC 33.8 RDW Std Deviation 43.8 RDW Coeff of Rosa Elena 15.1 H Plt Count 152 MPV 8.4 Immature Gran % (Auto) 0.0 Neut % (Auto) 80.8 Lymph % (Auto) 12.0 Clarke % (Auto) 6.0 Eos % (Auto) 0.8 Baso % (Auto) 0.4 Reticulocyte % (Auto) 0.6 Neut # (Auto) 2.02 Lymph # (Auto) 0.30 L Clarke # (Auto) 0.15 Eos # (Auto) 0.02 Baso # (Auto) 0.01 Reticulocyte # 0.02 Immature Gran # (Auto) 0.00 Absolute Nucleated RBC 0.00 Nucleated RBC % (auto) 0.0 Microcytosis Present Peripher Smr Path Cons ESR Sodium 121 L Potassium 6.1 H* Chloride 93 L Carbon Dioxide 19 L Anion Gap 9.0 BUN 76 H Creatinine 5.94 H* Est Cr Clr Drug Dosing 18.4 Est GFR ( Amer) 12.8 Est GFR (Non-Af Amer) 11.0 BUN/Creatinine Ratio 12.8 Glucose 90 POC Glucose Calcium 8.3 L Iron TIBC Urine Color Urine Appearance Urine pH Ur Specific Linden Urine Protein Urine Glucose (UA) Urine Ketones Urine Blood Urine Nitrite Urine Bilirubin Urine Urobilinogen Ur Leukocyte Esterase Urine WBC (Auto) Urine RBC (Auto) U Hyaline Cast (Auto) U Epithel Cells (Auto) Urine Bacteria (Auto) COVID-19 Eval Order SARS-CoV-2 (PCR) Blood Type B Positive Antibody Screen NEGATIVE 08/24/20 08/24/20 08/24/20 12:04 12:04 13:35 WBC RBC Hgb Hct MCV MCH MCHC RDW Std Deviation RDW Coeff of Rosa Elena Plt Count MPV Immature Gran % (Auto) Neut % (Auto) Lymph % (Auto) Clarke % (Auto) Eos % (Auto) Baso % (Auto) Reticulocyte % (Auto) Neut # (Auto) Lymph # (Auto) Clarke # (Auto) Eos # (Auto) Baso # (Auto) Reticulocyte # Immature Gran # (Auto) Absolute Nucleated RBC Nucleated RBC % (auto) Microcytosis Peripher Smr Path Cons Cancelled ESR 25 H Sodium Potassium Chloride Carbon Dioxide Anion Gap BUN Creatinine Est Cr Clr Drug Dosing Est GFR ( Amer) Est GFR (Non-Af Amer) BUN/Creatinine Ratio Glucose POC Glucose Calcium Iron TIBC Urine Color Urine Appearance Urine pH Ur Specific Linden Urine Protein Urine Glucose (UA) Urine Ketones Urine Blood Urine Nitrite Urine Bilirubin Urine Urobilinogen Ur Leukocyte Esterase Urine WBC (Auto) Urine RBC (Auto) U Hyaline Cast (Auto) U Epithel Cells (Auto) Urine Bacteria (Auto) COVID-19 Eval Order Covid19 at [facility] SARS-CoV-2 (PCR) Blood Type Antibody Screen 08/24/20 08/24/20 08/24/20 13:35 13:35 15:28 WBC RBC Hgb Hct MCV MCH MCHC RDW Std Deviation RDW Coeff of Rosa Elena Plt Count MPV Immature Gran % (Auto) Neut % (Auto) Lymph % (Auto) Clarke % (Auto) Eos % (Auto) Baso % (Auto) Reticulocyte % (Auto) Neut # (Auto) Lymph # (Auto) Clarke # (Auto) Eos # (Auto) Baso # (Auto) Reticulocyte # Immature Gran # (Auto) Absolute Nucleated RBC Nucleated RBC % (auto) Microcytosis Peripher Smr Path Cons ESR Sodium Potassium Chloride Carbon Dioxide Anion Gap BUN Creatinine Est Cr Clr Drug Dosing Est GFR ( Amer) Est GFR (Non-Af Amer) BUN/Creatinine Ratio Glucose POC Glucose 115 H Calcium Iron TIBC Urine Color Yellow Urine Appearance Clear Urine pH 6.5 Ur Specific Linden 1.007 Urine Protein 3+ H Urine Glucose (UA) Negative Urine Ketones Negative Urine Blood 3+ H Urine Nitrite Negative Urine Bilirubin Negative Urine Urobilinogen Negative Ur Leukocyte Esterase Negative Urine WBC (Auto) 1-5 Urine RBC (Auto) >30 H U Hyaline Cast (Auto) 0 U Epithel Cells (Auto) 0-5 Urine Bacteria (Auto) Negative COVID-19 Eval Order SARS-CoV-2 (PCR) POSITIVE A* Blood Type Antibody Screen 08/24/20 08/24/20 18:34 18:34 WBC RBC Hgb Hct MCV MCH MCHC RDW Std Deviation RDW Coeff of Rosa Elena Plt Count MPV Immature Gran % (Auto) Neut % (Auto) Lymph % (Auto) Clarke % (Auto) Eos % (Auto) Baso % (Auto) Reticulocyte % (Auto) Cancelled Neut # (Auto) Lymph # (Auto) Clarke # (Auto) Eos # (Auto) Baso # (Auto) Reticulocyte # Cancelled Immature Gran # (Auto) Absolute Nucleated RBC Nucleated RBC % (auto) Microcytosis Peripher Smr Path Cons ESR Sodium Potassium Chloride Carbon Dioxide Anion Gap BUN Creatinine Est Cr Clr Drug Dosing Est GFR ( Amer) Est GFR (Non-Af Amer) BUN/Creatinine Ratio Glucose POC Glucose Calcium Iron 18 L TIBC 311 Urine Color Urine Appearance Urine pH Ur Specific Linden Urine Protein Urine Glucose (UA) Urine Ketones Urine Blood Urine Nitrite Urine Bilirubin Urine Urobilinogen Ur Leukocyte Esterase Urine WBC (Auto) Urine RBC (Auto) U Hyaline Cast (Auto) U Epithel Cells (Auto) Urine Bacteria (Auto) COVID-19 Eval Order SARS-CoV-2 (PCR) Blood Type Antibody Screen Diagnostic Findings CT scan of the abdomen and pelvis PG Care Time/CCT Total # of Minutes Spent Total Time Spent with Patient: Total time spent is greater than 50% in coordination of care (as documented) at patient's floor/unit and/or counseling patient: Prolonged Care Time 75 minutes Coding Level of Care Code 65074 Inpt Consult Level 5 Diagnoses TARA (acute kidney injury) N17.9 COVID U07.1 Hyperkalemia E87.5 Hyponatremia E87.1 Anemia D64.9 Positive ALISON (antinuclear antibody) R76.8 Hematuria, microscopic R31.29 Mixed connective tissue disease M35.1 Benign essential hypertension I10 Proteinuria R80.9
[2020-08-24] MEDS: carvediloL 25 MG TAB PO SCH (20:35)
[2020-08-24] MEDS: hydrALAZINE TAB 50 MG TAB PO SCH (20:36)
[2020-08-24 21:24] LABS: BUN Creatinine Ratio 12.2 (10-20); Calcium 8.4 mg/dl (8.5-10.1); Creatinine Clr Calc Pharmacy 18.6 ml/min; Est GFR (African American) 12.9 ml/min; Est GFR (Non-African American) 11.1 ml/min; Potassium 5.7 mmol/L (3.5-5.1)
[2020-08-24 21:31] LABS: Hepatitis B Surf Ag Rflx Conf Neg (Neg)
[2020-08-24 21:59] LABS: Hepatitis C IgG 13Yrs+Old_Rflx Neg (Neg)
[2020-08-24] MEDS ORDERED: DEXTROSE 50% 50 ML SYRINGE IV ONE (23:41)
[2020-08-24] MEDS ORDERED: INSULIN HUMAN REGULAR PER UNIT 10 UNITS in SYRINGE 9.9 ML IV STA (23:44)
[2020-08-25 07:11] LABS: Albumin Level 2.7 gm/dl (3.4-5.0); BUN Creatinine Ratio 13.5 (10-20); Est GFR (African American) 12.3 ml/min; Est GFR (Non-African American) 10.6 ml/min; Phosphorus 5.7 mg/dl (2.5-4.9); Potassium 5.6 mmol/L (3.5-5.1); Uric Acid 9.3 mg/dl (2.6-7.2)
[2020-08-25 07:53] LABS: Hematocrit (blood only) 20.7 % (42-52); Mean Corpuscular Hgb Conc 33.8 g/dL (32-36); Mean Platelet Volume 8.8 fL (7.4-10.4); Platelet Count 178 K/uL (130-400); RDW Coefficient of Variation 15.1 % (11.5-14.5); RDW Standard Deviation 43.2 fL (36.4-46.3); Red Blood Count 2.69 M/uL (4.7-6.1)
[2020-08-25] MEDS ORDERED: PATIROMER CALCIUM SORBITEX 8.4 GM PACK PO ONE (08:00)
[2020-08-25] MEDS ORDERED: EPOETIN ALFA 10,000 UNITS/ML VIAL SQ ONE (08:01)
[2020-08-25] MEDS: ASPIRIN 81 MG ECTAB PO SCH (08:15)
[2020-08-25] MEDS: amLODIPine BESYLATE 5 MG TAB PO SCH (08:15)
[2020-08-25] MEDS ORDERED: IRON SUCROSE 200 MG in 0.9 % SODIUM CHLORIDE 100 ML IV ONE (08:15)
[2020-08-25] MEDS: carvediloL 25 MG TAB PO SCH ×2 (08:16→20:52)
[2020-08-25] MEDS: hydrALAZINE TAB 50 MG TAB PO SCH ×2 (08:17→20:52)
[2020-08-25] MEDS: methylPREDNISolone 1,000 MG in DEXTROSE 5% 250 ML IV SCH (08:17)
[2020-08-25] MEDS: SODIUM BICARBONATE 650 MG TAB PO SCH ×3 (08:43→20:52)
[2020-08-25] MEDS ORDERED: PATIROMER CALCIUM SORBITEX 8.4 GM PACK PO SCH (09:00)
[2020-08-25] MEDS ORDERED: HYDROXYCHLOROQUINE SULFATE 200 MG TAB PO SCH (09:00)
--- NOTE | 2020-08-25 10:18 | Nephrology Progress Note ---
Date of Service August 25, 2020 Assessment & Plan (1) TARA (acute kidney injury): Plan: Non-oliguric. Hyperkalemia and metabolic acidosis improving. Volume status acceptable. No emergent indication for dialysis. Serologic testing pending. Chronicity and etiology unclear. Ultimately, kidney biopsy will likely be necessary for diagnosis. I suspect there is a degree of chronicity but I certainly cannot exclude underlying GN. Thankfully, creatinine stable arguing against active RPGN and urine microscopy did not reveal red cell casts or dysmorphic RBCs, or WBCs. I would like to continued Solumedrol 1000 mg daily x 3 days. Document strict I/O's. Repeat metabolic profile tomorrow AM. Goals of care and potential indications for [employer] were reviewed. Medications are appropriately dosed for kidney dysfunction. (2) COVID: (3) Hyperkalemia: Plan: Improving. Oral NaHCO3 has been ordered. I also ordered an additional dose of patiromer this AM. Low potassium diet. (4) Hyponatremia: Plan: Encourage oral solute intake. 1.5 L daily fluid restriction. (5) Anemia: Plan: Asymptomatic. Will defer transfusion option. Iron stores slightly low Epogen 52122 units and venofer 200 mg IV ordered this AM. Repeat tomorrow AM. Check stool for occult blood. (6) Positive ALISON (antinuclear antibody): (7) Hematuria, microscopic: Plan: Unclear if glomerular or non-glomerular. Will repeat urine microscopy in next 24 hours. (8) Mixed connective tissue disease: (9) Benign essential hypertension: Plan: BP acceptable. Continue to hold losartan and spironolactone. Avoid RAAS blockade at this time. (10) Proteinuria: Plan: 24 hour urine collection ongoing. Admission and Anticipated Discharge Date Admission Date: August 24, 2020 Subjective No acute events overnight. Myron feels well this AM. No complaints this AM. We discussed consideration of transfer to a tertiary care facility able to provide kidney biopsy, permcath placement on weekend, and 24 hour dialysis. Transfer may expedite serologic evaluation as well but Myron does not want to leave [facility]. He understands risk/benefits, including potential delay in diagnosis or requiring more than the necessary number of procedures. Myron states that he would rather stay at [facility] and ideally coordinate a biopsy as an outpatient. Good urine output. I reviewed the plan of care with Dr. Newsome this AM. Review of Systems Constitutional: no weight loss, no weight gain and no problem reported Eyes: no problem reported Ear, Nose, Mouth, Throat: no problem reported Respiratory: no problem reported Cardiovascular: no problem reported Gastrointestinal: no problem reported Musculoskeletal: no problem reported Integumentary: no problem reported Neurologic: no problem reported Psychiatric: no problem reported Endocrine: no problem reported Hematologic / Lymphatic: no problem reported Physical Exam Constitutional: well developed; no acute distress Eyes: no scleral abnormality and no corneal abnormality ENMT: Mouth: no oral mucosal abnormality and oral mucous membranes not dry Neck: normal visual inspection and trachea midline Respiratory: normal respiratory effort Auscultation: lungs clear to auscultation bilaterally Cardiovascular: Rate/Rhythm: regular rate Heart Sounds: normal S1 and normal S2 Extremities: + edema Musculoskeletal: Extremities: no cyanosis and no clubbing Skin: normal turgor and + lesion (indurated healed lesion on inside of the bose); no rashes Neurologic: Motor/Sensory: no tremor and no asterixis Psychiatric: Orientation: alert and oriented x 3 Results & Data ([facility]) Vital Signs (Past 12 Hours) Vital Signs Temp Pulse Resp BP Pulse Ox 08/25/20 08:00 36.6 C 80 18 157/84 H 100 08/25/20 04:00 36.6 C 76 18 134/79 96 08/24/20 23:18 36.9 C 70 20 124/70 97 Laboratory Results Laboratory Results - last 24 hr 08/24/20 08/24/20 08/24/20 12:04 12:04 12:04 WBC 2.50 L RBC 2.80 L Hgb 7.3 L Hct 21.6 L MCV 77.1 L MCH 26.1 MCHC 33.8 RDW Std Deviation 43.8 RDW Coeff of Rosa Elena 15.1 H Plt Count 152 MPV 8.4 Immature Gran % (Auto) 0.0 Neut % (Auto) 80.8 Lymph % (Auto) 12.0 [place] % (Auto) 6.0 Eos % (Auto) 0.8 Baso % (Auto) 0.4 Reticulocyte % (Auto) 0.6 Neut # (Auto) 2.02 Lymph # (Auto) 0.30 L [place] # (Auto) 0.15 Eos # (Auto) 0.02 Baso # (Auto) 0.01 Reticulocyte # 0.02 Immature Gran # (Auto) 0.00 Absolute Nucleated RBC 0.00 Nucleated RBC % (auto) 0.0 Microcytosis Present Peripher Smr Path Cons ESR Sodium 121 L Potassium 6.1 H* Chloride 93 L Carbon Dioxide 19 L Anion Gap 9.0 BUN 76 H Creatinine 5.94 H* Est Cr Clr Drug Dosing 18.4 Est GFR ( Amer) 12.8 Est GFR (Non-Af Amer) 11.0 BUN/Creatinine Ratio 12.8 Glucose 90 POC Glucose Uric Acid Calcium 8.3 L Phosphorus Iron TIBC Total Creatine Kinase Total Protein (PEP) Albumin Albumin (PEP) Djelh-1-Irgfgbzru Rzyju-9-Xcsjgmjkl Mvmj-1-Uqjrjjvv Gvrl-2-Mrwelqxj Gamma Globulins Monoclonal Peak 3 Ser Monoclonl Protein Ser Monoclonal Prot 2 PEP Interpretation Urine Color Urine Appearance Urine pH Ur Specific [place] Urine Protein Urine Glucose (UA) Urine Ketones Urine Blood Urine Nitrite Urine Bilirubin Urine Urobilinogen Ur Leukocyte Esterase Urine WBC (Auto) Urine RBC (Auto) U Hyaline Cast (Auto) U Epithel Cells (Auto) Urine Bacteria (Auto) Ur Random Sodium Serum Immunofixation ALISON Screen Anti-Proteinase 3 Anti-Myeloperoxidase ANCA Double Strand DNA Ab Glomerular Base Memb Ab Complement C3 Complement C4 Tot Complement (CH50) COVID-19 Eval Order SARS-CoV-2 (PCR) Hepatitis A IgM Ab Hep Bs Antigen Hep Bs Antibody Hep Bs Antibody, Quant Hep B Core IgM Ab Hepatitis C Antibody Phospholip A2 Rec IFA Phospholip A2 Rec RG Blood Type B Positive Antibody Screen NEGATIVE 08/24/20 08/24/20 08/24/20 12:04 12:04 13:35 WBC RBC Hgb Hct MCV MCH MCHC RDW Std Deviation RDW Coeff of [place] Plt Count MPV Immature Gran % (Auto) Neut % (Auto) Lymph % (Auto) [place] % (Auto) Eos % (Auto) Baso % (Auto) Reticulocyte % (Auto) Neut # (Auto) Lymph # (Auto) [place] # (Auto) Eos # (Auto) Baso # (Auto) Reticulocyte # Immature Gran # (Auto) Absolute Nucleated RBC Nucleated RBC % (auto) Microcytosis Peripher Smr Path Cons Cancelled ESR 25 H Sodium Potassium Chloride Carbon Dioxide Anion Gap BUN Creatinine Est Cr Clr Drug Dosing Est GFR ( Amer) Est GFR (Non-Af Amer) BUN/Creatinine Ratio Glucose POC Glucose Uric Acid Calcium Phosphorus Iron TIBC Total Creatine Kinase Total Protein (PEP) Albumin Albumin (PEP) Nujfz-3-Pccabeygr Clktj-4-Ddjenergp Piom-9-Rsjcdfwy Yugz-8-Rwuwhugt Gamma Globulins Monoclonal Peak 3 Ser Monoclonl Protein Ser Monoclonal Prot 2 PEP Interpretation Urine Color Urine Appearance Urine pH Ur Specific [place] Urine Protein Urine Glucose (UA) Urine Ketones Urine Blood Urine Nitrite Urine Bilirubin Urine Urobilinogen Ur Leukocyte Esterase Urine WBC (Auto) Urine RBC (Auto) U Hyaline Cast (Auto) U Epithel Cells (Auto) Urine Bacteria (Auto) Ur Random Sodium Serum Immunofixation ALISON Screen Anti-Proteinase 3 Anti-Myeloperoxidase ANCA Double Strand DNA Ab Glomerular Base Memb Ab Complement C3 Complement C4 Tot Complement (CH50) COVID-19 Eval Order Covid19 at [facility] SARS-CoV-2 (PCR) Hepatitis A IgM Ab Hep Bs Antigen Hep Bs Antibody Hep Bs Antibody, Quant Hep B Core IgM Ab Hepatitis C Antibody Phospholip A2 Rec IFA Phospholip A2 Rec RG Blood Type Antibody Screen 08/24/20 08/24/20 08/24/20 13:35 13:35 15:28 WBC RBC Hgb Hct MCV MCH MCHC RDW Std Deviation RDW Coeff of [place] Plt Count MPV Immature Gran % (Auto) Neut % (Auto) Lymph % (Auto) [place] % (Auto) Eos % (Auto) Baso % (Auto) Reticulocyte % (Auto) Neut # (Auto) Lymph # (Auto) [place] # (Auto) Eos # (Auto) Baso # (Auto) Reticulocyte # Immature Gran # (Auto) Absolute Nucleated RBC Nucleated RBC % (auto) Microcytosis Peripher Smr Path Cons ESR Sodium Potassium Chloride Carbon Dioxide Anion Gap BUN Creatinine Est Cr Clr Drug Dosing Est GFR ( Amer) Est GFR (Non-Af Amer) BUN/Creatinine Ratio Glucose POC Glucose 115 H Uric Acid Calcium Phosphorus Iron TIBC Total Creatine Kinase Total Protein (PEP) Albumin Albumin (PEP) Bmqah-7-Jfysfexrc Xotij-9-Jremuqxox Qkdq-6-Lzvffemt Iaht-8-Fcqloqtf Gamma Globulins Monoclonal Peak 3 Ser Monoclonl Protein Ser Monoclonal Prot 2 PEP Interpretation Urine Color Yellow Urine Appearance Clear Urine pH 6.5 Ur Specific [place] 1.007 Urine Protein 3+ H Urine Glucose (UA) Negative Urine Ketones Negative Urine Blood 3+ H Urine Nitrite Negative Urine Bilirubin Negative Urine Urobilinogen Negative Ur Leukocyte Esterase Negative Urine WBC (Auto) 1-5 Urine RBC (Auto) >30 H U Hyaline Cast (Auto) 0 U Epithel Cells (Auto) 0-5 Urine Bacteria (Auto) Negative Ur Random Sodium Serum Immunofixation ALISON Screen Anti-Proteinase 3 Anti-Myeloperoxidase ANCA Double Strand DNA Ab Glomerular Base Memb Ab Complement C3 Complement C4 Tot Complement (CH50) COVID-19 Eval Order SARS-CoV-2 (PCR) POSITIVE A* Hepatitis A IgM Ab Hep Bs Antigen Hep Bs Antibody Hep Bs Antibody, Quant Hep B Core IgM Ab Hepatitis C Antibody Phospholip A2 Rec IFA Phospholip A2 Rec RG Blood Type Antibody Screen 08/24/20 08/24/20 08/24/20 18:34 18:34 20:33 WBC RBC Hgb Hct MCV MCH MCHC RDW Std Deviation RDW Coeff of Rosa Elena Plt Count MPV Immature Gran % (Auto) Neut % (Auto) Lymph % (Auto) [place] % (Auto) Eos % (Auto) Baso % (Auto) Reticulocyte % (Auto) Cancelled Neut # (Auto) Lymph # (Auto) [place] # (Auto) Eos # (Auto) Baso # (Auto) Reticulocyte # Cancelled Immature Gran # (Auto) Absolute Nucleated RBC Nucleated RBC % (auto) Microcytosis Peripher Smr Path Cons ESR Sodium 120 L Potassium 5.7 H Chloride 94 L Carbon Dioxide 16 L Anion Gap 10.0 BUN 74 H Creatinine 5.90 H* Est Cr Clr Drug Dosing 18.6 Est GFR ( Amer) 12.9 Est GFR (Non-Af Amer) 11.1 BUN/Creatinine Ratio 12.2 Glucose 146 H POC Glucose Uric Acid Calcium 8.4 L Phosphorus Iron 18 L TIBC 311 Total Creatine Kinase Total Protein (PEP) Albumin Albumin (PEP) Cgbkw-7-Kvorjndla Kxqbr-2-Nqcovnfes Cjvu-4-Ksfgahds Rqdl-7-Kxpldgqn Gamma Globulins Monoclonal Peak 3 Ser Monoclonl Protein Ser Monoclonal Prot 2 PEP Interpretation Urine Color Urine Appearance Urine pH Ur Specific [place] Urine Protein Urine Glucose (UA) Urine Ketones Urine Blood Urine Nitrite Urine Bilirubin Urine Urobilinogen Ur Leukocyte Esterase Urine WBC (Auto) Urine RBC (Auto) U Hyaline Cast (Auto) U Epithel Cells (Auto) Urine Bacteria (Auto) Ur Random Sodium Serum Immunofixation ALISON Screen Anti-Proteinase 3 Anti-Myeloperoxidase ANCA Double Strand DNA Ab Glomerular Base Memb Ab Complement C3 Complement C4 Tot Complement (CH50) COVID-19 Eval Order SARS-CoV-2 (PCR) Hepatitis A IgM Ab Hep Bs Antigen Hep Bs Antibody Hep Bs Antibody, Quant Hep B Core IgM Ab Hepatitis C Antibody Phospholip A2 Rec IFA Phospholip A2 Rec RG Blood Type Antibody Screen 08/24/20 08/24/20 08/24/20 20:33 20:33 20:33 WBC RBC Hgb Hct MCV MCH MCHC RDW Std Deviation RDW Coeff of Rosa Elena Plt Count MPV Immature Gran % (Auto) Neut % (Auto) Lymph % (Auto) [place] % (Auto) Eos % (Auto) Baso % (Auto) Reticulocyte % (Auto) Neut # (Auto) Lymph # (Auto) [place] # (Auto) Eos # (Auto) Baso # (Auto) Reticulocyte # Immature Gran # (Auto) Absolute Nucleated RBC Nucleated RBC % (auto) Microcytosis Peripher Smr Path Cons ESR Sodium Potassium Chloride Carbon Dioxide Anion Gap BUN Creatinine Est Cr Clr Drug Dosing Est GFR ( Amer) Est GFR (Non-Af Amer) BUN/Creatinine Ratio Glucose POC Glucose Uric Acid Calcium Phosphorus Iron TIBC Total Creatine Kinase Total Protein (PEP) Pending Albumin Albumin (PEP) Pending Sefmr-6-Byzoxxxfl Pending Unfdh-9-Wcqonshmg Pending Cbeb-0-Czbnopyo Pending Noed-5-Muopdygg Pending Gamma Globulins Pending Monoclonal Peak 3 Pending Ser Monoclonl Protein Pending Ser Monoclonal Prot 2 Pending PEP Interpretation Pending Urine Color Urine Appearance Urine pH Ur Specific [place] Urine Protein Urine Glucose (UA) Urine Ketones Urine Blood Urine Nitrite Urine Bilirubin Urine Urobilinogen Ur Leukocyte Esterase Urine WBC (Auto) Urine RBC (Auto) U Hyaline Cast (Auto) U Epithel Cells (Auto) Urine Bacteria (Auto) Ur Random Sodium Serum Immunofixation Pending ALISON Screen Pending Anti-Proteinase 3 Pending Anti-Myeloperoxidase Pending ANCA Pending Double Strand DNA Ab Glomerular Base Memb Ab Pending Complement C3 Pending Complement C4 Pending Tot Complement (CH50) Pending COVID-19 Eval Order SARS-CoV-2 (PCR) Hepatitis A IgM Ab Hep Bs Antigen Neg Hep Bs Antibody Cancelled Hep Bs Antibody, Quant Cancelled Hep B Core IgM Ab Pending Hepatitis C Antibody Cancelled Neg Phospholip A2 Rec IFA Phospholip A2 Rec RG Blood Type Antibody Screen 08/24/20 08/25/20 08/25/20 20:33 00:30 05:46 WBC RBC Hgb Hct MCV MCH MCHC RDW Std Deviation RDW Coeff of [place] Elena Plt Count MPV Immature Gran % (Auto) Neut % (Auto) Lymph % (Auto) [place] % (Auto) Eos % (Auto) Baso % (Auto) Reticulocyte % (Auto) Neut # (Auto) Lymph # (Auto) [place] # (Auto) Eos # (Auto) Baso # (Auto) Reticulocyte # Immature Gran # (Auto) Absolute Nucleated RBC Nucleated RBC % (auto) Microcytosis Peripher Smr Path Cons ESR Sodium 122 L Potassium 5.6 H Chloride 95 L Carbon Dioxide 16 L Anion Gap 11.0 BUN 83 H Creatinine 6.14 H* Est Cr Clr Drug Dosing 18.0 Est GFR ( Amer) 12.3 Est GFR (Non-Af Amer) 10.6 BUN/Creatinine Ratio 13.5 Glucose 134 H POC Glucose Uric Acid 9.3 H Calcium 8.0 L Phosphorus 5.7 H Iron TIBC Total Creatine Kinase 50 Total Protein (PEP) Pending Albumin 2.7 L Albumin (PEP) Pending Vpmyk-6-Ogkawhjsl Pending Gtldw-5-[place] Pending Oidt-4-Cucylqle Pending Xldb-1-Hxrrhaez Pending Gamma Globulins Pending Monoclonal Peak 3 Pending Ser Monoclonl Protein Pending Ser Monoclonal Prot 2 Pending PEP Interpretation Pending Urine Color Urine Appearance Urine pH Ur Specific [place] Urine Protein Urine Glucose (UA) Urine Ketones Urine Blood Urine Nitrite Urine Bilirubin Urine Urobilinogen Ur Leukocyte Esterase Urine WBC (Auto) Urine RBC (Auto) U Hyaline Cast (Auto) U Epithel Cells (Auto) Urine Bacteria (Auto) Ur Random Sodium 14 Serum Immunofixation ALISON Screen Pending Anti-Proteinase 3 Anti-Myeloperoxidase ANCA Pending Double Strand DNA Ab Pending Glomerular Base Memb Ab Complement C3 Pending Complement C4 Pending Tot Complement (CH50) Pending COVID-19 Eval Order SARS-CoV-2 (PCR) Hepatitis A IgM Ab Pending Hep Bs Antigen Hep Bs Antibody Hep Bs Antibody, Quant Hep B Core IgM Ab Pending Hepatitis C Antibody Phospholip A2 Rec IFA Pending Phospholip A2 Rec RG Pending Blood Type Antibody Screen 08/25/20 05:49 WBC 2.10 L RBC 2.69 L Hgb 7.0 L Hct 20.7 L* MCV 77.0 L MCH 26.0 MCHC 33.8 RDW Std Deviation 43.2 RDW Coeff of Rosa Elena 15.1 H Plt Count 178 MPV 8.8 Immature Gran % (Auto) Neut % (Auto) Lymph % (Auto) [place] % (Auto) Eos % (Auto) Baso % (Auto) Reticulocyte % (Auto) Neut # (Auto) Lymph # (Auto) [place] # (Auto) Eos # (Auto) Baso # (Auto) Reticulocyte # Immature Gran # (Auto) Absolute Nucleated RBC Nucleated RBC % (auto) Microcytosis Peripher Smr Path Cons ESR Sodium Potassium Chloride Carbon Dioxide Anion Gap BUN Creatinine Est Cr Clr Drug Dosing Est GFR ( Amer) Est GFR (Non-Af Amer) BUN/Creatinine Ratio Glucose POC Glucose Uric Acid Calcium Phosphorus Iron TIBC Total Creatine Kinase Total Protein (PEP) Albumin Albumin (PEP) Vkipy-8-Kopeplpzk Kueiz-1-Jpwlhuuyj Ljyt-9-Xilyiebn Drzs-7-Jyssbgfz Gamma Globulins Monoclonal Peak 3 Ser Monoclonl Protein Ser Monoclonal Prot 2 PEP Interpretation Urine Color Urine Appearance Urine pH Ur Specific [place] Urine Protein Urine Glucose (UA) Urine Ketones Urine Blood Urine Nitrite Urine Bilirubin Urine Urobilinogen Ur Leukocyte Esterase Urine WBC (Auto) Urine RBC (Auto) U Hyaline Cast (Auto) U Epithel Cells (Auto) Urine Bacteria (Auto) Ur Random Sodium Serum Immunofixation ALISON Screen Anti-Proteinase 3 Anti-Myeloperoxidase ANCA Double Strand DNA Ab Glomerular Base Memb Ab Complement C3 Complement C4 Tot Complement (CH50) COVID-19 Eval Order SARS-CoV-2 (PCR) Hepatitis A IgM Ab Hep Bs Antigen Hep Bs Antibody Hep Bs Antibody, Quant Hep B Core IgM Ab Hepatitis C Antibody Phospholip A2 Rec IFA Phospholip A2 Rec RG Blood Type Antibody Screen PG Care Time/CCT Total # of Minutes Spent Total Time Spent with Patient: Total time spent is greater than 50% in coordination of care (as documented) at patient's floor/unit and/or counseling patient: Coding Level of Care Code 92107 Subseq Hosp Care Lvl 3 Diagnoses TARA (acute kidney injury) N17.9 COVID U07.1 Hyperkalemia E87.5 Hyponatremia E87.1 Anemia D64.9 Positive ALISON (antinuclear antibody) R76.8 Hematuria, microscopic R31.29 Mixed connective tissue disease M35.1 Benign essential hypertension I10 Proteinuria R80.9
--- NOTE | 2020-08-25 16:42 | Electrocardiogram Report ---
Test Reason : Blood Pressure : / mmHG Vent. Rate : 074 BPM Atrial Rate : 074 BPM P-R Int : 190 ms QRS Dur : 106 ms QT Int : 404 ms P-R-T Axes : 023 063 031 degrees QTc Int : 448 ms Normal sinus rhythm Normal ECG When compared with ECG of 24-AUG-2020 12:15, NH interval has decreased Confirmed by Zenon Schmitz ([id number]) on 08/25/2020 4:42:39 PM Referred By: REFERRED SELF Confirmed By:Dung Schmitz
[2020-08-25] MEDS ORDERED: ENOXAPARIN INJ 40 MG/0.4 ML SYR SQ ONE (17:44)
--- NOTE | 2020-08-25 17:44 | Hospitalist Progress Note ---
Date of Service August 25, 2020 Assessment & Plan (1) Hematuria, microscopic: Plan: Patient is acute kidney injury with history of chronic kidney disease. Patient is hyperkalemic, hyponatremic, depressed carbon oxide BUN/creatinine of 76 and 5.94 no significant EKG changes but mild peaked T waves. Patient did receive dextrose and insulin in the ER be given patiromer orally. CT abdomen and pelvis does not show obstruction of renal system, renal size is normal and there is mild splenomegally given concern for nephritis will use daily solumedrol 1000mg Since the patient does make urine and he is not in overt congestive heart failure For concern for glomerulonephritis patient has 24-hour urine started, ANCA SPEP Compliment levels, anti gbm, Hepatitis panel and peripheral smear, sent (2) COVID: Plan: Patient Covid test was positive in the ER this is a PCR test patient is asymptomatic and his family is also asymptomatic and they have been vaccinated but the patient has not. 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 airborne isolation Repeat Covid testing on 08/25/2020 is still persistently positive. His point of contact in the chart was notified because he does have close contact with his family they were made aware of his persistent positive status and told to self isolate at home versus to go get tested themselves. On admission his family had was asymptomatic at the time (3) Hyponatremia: Plan: Patient is significantly hyponatremic patient was given isotonic saline in the ER we will check a random urine sodium patient was given bicarbonate under the instruction of nephrology he will be given 500 additional Normosol Patient remains hyponatremic he is on fluid restriction at this time (4) Hyperkalemia: Plan: Hyperkalemia treated in the emergency department with dextrose and insulin [place] room air was given EKGs with very minor T wave changes will have on telemetry Potassium levels are modestly improved we will continue PT room air (5) CAD (coronary artery disease): Plan: 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 Nephrology does not feel need to transfuse at this time but did administer erythropoietin and iron that is iron deficient state (6) Anemia: Plan: microcytic anemia, nephrology feels could be from blood loss or anemia of chronic disease erythropoietin and iron were administered. (7) Benign essential hypertension: Plan: continue coreg and amlodipine plus hydralazine Admission and Anticipated Discharge Date Admission Date: August 24, 2020 Subjective Patient is with very little distress he is fatigued otherwise he is not more short of breath over his baseline has no increased lower extremity edema over his baseline and he continues to not exhibit any upper respiratory symptoms consistent with Covid nor loss of taste or smell nor diarrhea Review of Systems Review of Systems: Mild distress and fatigue no headache, no visual changes no speech or swallowing issues no chest pain, pressure or palpitations no shortness of breath, continues persistent mild dyspnea on exertion, no cough or wheezes no abdominal pain, nausea or vomiting, diarrhea or constipation no dysuria, hematuria or frequency, some darkened urine but no gross hematuria no focal joint pain, does have persistent lower extremity swelling worse at the end of the day no back pain, CVA tenderness or radicular pain no bruising, bleeding or rashes no focal signs of weakness or numbness or altered sensation no complaints of anxiety or depression.. Physical Exam Physical Exam: The patient appeared well nourished and normally developed. Vital signs as documented. Head exam is normocephalic atraumatic Neck is without JVD, thyromegaly, or carotid bruits. Lungs are clear to auscultation, no focal loss of breath sounds Cardiac exam, Rhythm is regular.. No murmurs, rubs or gallops. Abdominal exam reveals normal bowel sounds, soft non tender, no masses, no organomegaly Extremities are 1+ edematous equal bilaterally, both pedal pulses are present Neurologic exam is alert and oriented, no focal loss of strength or sensation Skin is without bruises or rashes Psychologically is without concerns for anxiety or depression Results & Data Results & Data ([facility]) Vital Signs (Past 12 Hours) Vital Signs Temp Pulse Pulse Resp BP Pulse Ox 08/25/20 16:59 99.0 F 87 18 144/84 H 99 08/25/20 16:00 85 08/25/20 11:58 98.8 F 83 19 133/76 98 08/25/20 08:00 97.9 F 80 18 157/84 H 100 PG Care Time/CCT Total # of Minutes Spent Total Time Spent with Patient: Total time spent is greater than 50% in coordination of care (as documented) at patient's floor/unit and/or counseling patient: Coding Level of Care Code 71367 Subseq Hosp Care Lvl 3 Diagnoses Hematuria, microscopic R31.29 COVID U07.1 Hyponatremia E87.1 Hyperkalemia E87.5 CAD (coronary artery disease) I25.10 Associated angina: without angina Coronary Disease-Associated Artery/Lesion type: [place] artery [place] vs. transplanted heart: [place] heart Anemia D64.9 Benign essential hypertension I10 (1) CAD (coronary artery disease) Associated angina: without angina Coronary Disease-Associated Artery/Lesion type: [place] artery [place] vs. transplanted heart: [place] heart Qualified Code(s): I25.10 - Atherosclerotic heart disease of [place] coronary artery without angina pectoris
[2020-08-25 17:47] LABS: BUN Creatinine Ratio 13.7 (10-20); Calcium 8.1 mg/dl (8.5-10.1); Creatinine Clr Calc Pharmacy 17.4 ml/min; Est GFR (African American) 11.7 ml/min; Est GFR (Non-African American) 10.1 ml/min; Potassium 5.5 mmol/L (3.5-5.1)
[2020-08-25] MEDS ORDERED: FUROSEMIDE 40 MG in SYRINGE 0 ML IV ONE (21:00)
[2020-08-26 07:46] LABS: Hemoglobin 6.8 g/dL (14.0-18.0); Mean Corpuscular Hemoglobin 25.6 pg (25-34); Mean Corpuscular Hgb Conc 32.4 g/dL (32-36); Mean Corpuscular Volume 78.9 fL (80-100); Mean Platelet Volume 8.4 fL (7.4-10.4); Platelet Count 183 K/uL (130-400); RDW Coefficient of Variation 15.3 % (11.5-14.5); RDW Standard Deviation 44.1 fL (36.4-46.3); Red Blood Count 2.66 M/uL (4.7-6.1); White Blood Count 3.56 K/uL (4.8-10.8)
[2020-08-26] MEDS ORDERED: IRON SUCROSE 200 MG in 0.9 % SODIUM CHLORIDE 100 ML IV ONE (08:00)
[2020-08-26 08:21] LABS: Albumin Level 2.8 gm/dl (3.4-5.0); BUN Creatinine Ratio 14.3 (10-20); Creatinine Clr Calc Pharmacy 16.9 ml/min; Est GFR (African American) 11.5 ml/min; Est GFR (Non-African American) 9.9 ml/min; Phosphorus 6.3 mg/dl (2.5-4.9); Potassium 4.7 mmol/L (3.5-5.1)
[2020-08-26] MEDS: amLODIPine BESYLATE 5 MG TAB PO SCH (09:47)
[2020-08-26] MEDS: ASPIRIN 81 MG ECTAB PO SCH (09:47)
[2020-08-26] MEDS: carvediloL 25 MG TAB PO SCH ×2 (09:47→20:16)
[2020-08-26] MEDS: PANTOprazole 40 MG TAB PO SCH (09:48)
[2020-08-26] MEDS: hydrALAZINE TAB 50 MG TAB PO SCH ×2 (09:48→20:16)
[2020-08-26] MEDS: SODIUM BICARBONATE 650 MG TAB PO SCH ×3 (09:49→20:16)
--- NOTE | 2020-08-26 10:18 | Nephrology Progress Note ---
Date of Service August 26, 2020 Assessment & Plan (1) TARA (acute kidney injury): Plan: Etiology remains unclear. Chronicity also unknown (creatinine at baseline had been 2.0 mg/dL as recently as 2 months ago). Non-oliguric. Volume status acceptable. Electrolytes improved. No emergent indication for dialysis. Goals of care and potential indications for EGG TRAYER were reviewed. For possible GN, today is day 3 of Solumedrol 1 gram. Plan to transition to PO prednisone 60 mg daily tomorrow. I would plan to continue steroids pending kidney biopsy. Pantoprazole 40 mg daily for GI prophylaxis. I have discussed with Myron that biopsy will ultimately be required for defin itive diagnosis. Ideally, we would pursue this when acute issues such as anemia and electrolytes are controlled. Myron would like to consider coordinating as an outpatient which seems reasonable if kidney function remains stable. In the setting of nephrosis, microscopic hematuria, and COVID renovascular disease will be evaluated with a duplex today. Repeat UA/microscopy also requested. Hyponatremia improving with diuretics, free water restriction. I suspect he would benefit from daily or QOD low dose loop diuretic (such as furosemide 20 mg). Serologic testing pending. Document strict I/O's. Repeat metabolic profile tomorrow AM. Medications are appropriately dosed for kidney dysfunction. (2) COVID: (3) Hyperkalemia: Plan: Improving. Information on low potassium diet to be reviewed prior to discharge. (4) Hyponatremia: Plan: Encourage oral solute intake. 1.5 L daily fluid restriction. Diuretics to encourage slightly negative fluid balance. I have held additional Lasix today. Myron responded well to 40 mg IV yesterday. (5) Anemia: Plan: Asymptomatic. I have deferred transfusion option given that Myron has been asymptomatic but would like to see some improvement prior to discharge or scheduling a biopsy. Iron stores slightly low Epogen 11092 units and venofer 200 mg IV provided yesterday. Additional 200 mg IV venofer provided this AM. Repeat tomorrow AM. Check stool for occult blood; I was not able to find report of this result from the ER. (6) Positive ALISON (antinuclear antibody): (7) Hematuria, microscopic: Plan: Unclear if glomerular or non-glomerular. Will repeat urine microscopy today. Outpatient follow up and ultimately kidney biopsy will be necessary. (8) Mixed connective tissue disease: (9) Benign essential hypertension: Plan: BP acceptable. Continue to hold losartan and spironolactone. Avoid RAAS blockade at this time. (10) Proteinuria: Plan: 24 hour urine collection pending. Admission and Anticipated Discharge Date Admission Date: August 24, 2020 Subjective No acute events overnight. Myron continues to feel well. He is making a good amount of urine. LE edema improved. Furosemide 40 mg provided yesterday afternoon. Appetite is good. He would like to be discharged home as soon as possible. Review of Systems Constitutional: no problem reported Eyes: no problem reported Ear, Nose, Mouth, Throat: no problem reported Respiratory: no problem reported Cardiovascular: no problem reported Gastrointestinal: no problem reported Musculoskeletal: no problem reported Integumentary: no problem reported Neurologic: no problem reported Psychiatric: no problem reported Endocrine: no problem reported Hematologic / Lymphatic: no problem reported Physical Exam Constitutional: well developed; no acute distress Eyes: no scleral abnormality and no corneal abnormality ENMT: Mouth: no oral mucosal abnormality and oral mucous membranes not dry Neck: normal visual inspection and trachea midline Respiratory: normal respiratory effort Auscultation: lungs clear to auscultation bilaterally Cardiovascular: Rate/Rhythm: + tachycardic Heart Sounds: normal S1 and normal S2 Extremities: + pedal edema Musculoskeletal: Extremities: no cyanosis and no clubbing Skin: normal turgor and + lesion (indurated healed lesion on inside of the bose); no rashes Neurologic: Motor/Sensory: no tremor and no asterixis Psychiatric: Orientation: alert and oriented x 3 Results & Data ([facility]) Vital Signs (Past 12 Hours) Vital Signs Temp Pulse Pulse Resp BP BP Pulse Ox 08/26/20 07:30 36.7 C 95 H 18 135/85 98 08/26/20 03:43 36.7 C 84 20 131/76 97 08/26/20 00:55 90 08/25/20 23:55 37.0 C 87 20 129/75 97 Laboratory Results Laboratory Results - last 24 hr 08/24/20 08/25/20 08/25/20 20:33 14:15 14:15 WBC RBC Hgb Hct MCV MCH MCHC RDW Std Deviation RDW Coeff of Rosa Elena Plt Count MPV Sodium Potassium Chloride Carbon Dioxide Anion Gap BUN Creatinine Est Cr Clr Drug Dosing Est GFR ( Amer) Est GFR (Non-Af Amer) BUN/Creatinine Ratio Glucose Calcium Phosphorus Total Protein (PEP) Cancelled Albumin Albumin (PEP) Cancelled Nwklq-8-Ixcdzdppm Cancelled Saqss-1-Nzmigldel Cancelled Imkf-9-Grnzcgrq Cancelled Uvmz-4-Wzzajdrh Cancelled Gamma Globulins Cancelled Monoclonal Peak 3 Cancelled Ser Monoclonl Protein Cancelled Ser Monoclonal Prot 2 Cancelled PEP Interpretation Cancelled Urine Total Volume Ur Creatinine 24 Hour Ur Total Protein 24 Hr Protein/Creat Ratio 24h Urine Total Protein Urine Albumin (%) U Ovznt-5-Evrbevkk (%) U Ywvdw-2-Svwnahar (%) U Beta Globulin (%) U Gamma Globulin (%) U Abnormal Prot Band 1 U Abnormal Prot Band 2 U Abnormal Prot Band 3 Urine PEP Interpret Urine Immunofixation ALISON Screen Cancelled Complement C3 Cancelled Complement C4 Cancelled Tot Complement (CH50) Cancelled COVID-19 Eval Order Covid19 at [facility] SARS-CoV-2 (PCR) POSITIVE A* Hep B Core IgM Ab Cancelled 08/25/20 08/26/20 08/26/20 17:04 06:53 06:53 WBC 3.56 L RBC 2.66 L Hgb 6.8 L* Hct 21.0 L MCV 78.9 L MCH 25.6 MCHC 32.4 RDW Std Deviation 44.1 RDW Coeff of Rosa Elena 15.3 H Plt Count 183 MPV 8.4 Sodium 125 L 129 L Potassium 5.5 H 4.7 Chloride 96 L 100 Carbon Dioxide 17 L 17 L Anion Gap 12.0 H 12.0 H BUN 87 H 92 H Creatinine 6.37 H* 6.50 H* Est Cr Clr Drug Dosing 17.4 16.9 Est GFR ( Amer) 11.7 11.5 Est GFR (Non-Af Amer) 10.1 9.9 BUN/Creatinine Ratio 13.7 14.3 Glucose 138 H 135 H Calcium 8.1 L 8.0 L Phosphorus 6.3 H Total Protein (PEP) Albumin 2.8 L Albumin (PEP) Rearh-1-Hmnzmavkh Bfqyr-8-Whznykluf Jils-9-Yhgqcciy Xjyk-7-Qidquavx Gamma Globulins Monoclonal Peak 3 Ser Monoclonl Protein Ser Monoclonal Prot 2 PEP Interpretation Urine Total Volume Ur Creatinine 24 Hour Ur Total Protein 24 Hr Protein/Creat Ratio 24h Urine Total Protein Urine Albumin (%) U Broma-1-Boalbpcq (%) U Qrakq-9-Amioiotg (%) U Beta Globulin (%) U Gamma Globulin (%) U Abnormal Prot Band 1 U Abnormal Prot Band 2 U Abnormal Prot Band 3 Urine PEP Interpret Urine Immunofixation ALISON Screen Complement C3 Complement C4 Tot Complement (CH50) COVID-19 Eval Order SARS-CoV-2 (PCR) Hep B Core IgM Ab 08/26/20 08/26/20 Unknown Unknown WBC RBC Hgb Hct MCV MCH MCHC RDW Std Deviation RDW Coeff of Rosa Elena Plt Count MPV Sodium Potassium Chloride Carbon Dioxide Anion Gap BUN Creatinine Est Cr Clr Drug Dosing Est GFR ( Amer) Est GFR (Non-Af Amer) BUN/Creatinine Ratio Glucose Calcium Phosphorus Total Protein (PEP) Albumin Albumin (PEP) Ziohm-1-Ucmithwdr Dqcgf-9-Ykwsyyltt Xezs-1-Hifggaih Aywt-3-Vikzdfzu Gamma Globulins Monoclonal Peak 3 Ser Monoclonl Protein Ser Monoclonal Prot 2 PEP Interpretation Urine Total Volume Pending Ur Creatinine 24 Hour Pending Ur Total Protein 24 Hr Pending Pending Protein/Creat Ratio 24h Pending Urine Total Protein Pending Urine Albumin (%) Pending U Gbgsd-5-Wmercjqo (%) Pending U Lasaj-0-Konbjhxy (%) Pending U Beta Globulin (%) Pending U Gamma Globulin (%) Pending U Abnormal Prot Band 1 Pending U Abnormal Prot Band 2 Pending U Abnormal Prot Band 3 Pending Urine PEP Interpret Pending Urine Immunofixation Pending ALISON Screen Complement C3 Complement C4 Tot Complement (CH50) COVID-19 Eval Order SARS-CoV-2 (PCR) Hep B Core IgM Ab PG Care Time/CCT Total # of Minutes Spent Total Time Spent with Patient: Total time spent is greater than 50% in coordination of care (as documented) at patient's floor/unit and/or counseling patient: Coding Level of Care Code 04612 Subseq Hosp Care Lvl 3 Diagnoses TARA (acute kidney injury) N17.9 COVID U07.1 Hyperkalemia E87.5 Hyponatremia E87.1 Anemia D64.9 Positive ALISON (antinuclear antibody) R76.8 Hematuria, microscopic R31.29 Mixed connective tissue disease M35.1 Benign essential hypertension I10 Proteinuria R80.9
[2020-08-26 10:22] LABS: Urine Total Protein 180.2 mg/dl
[2020-08-26] MEDS: methylPREDNISolone 1,000 MG in DEXTROSE 5% 250 ML IV SCH (10:30)
--- NOTE | 2020-08-26 15:01 | Ultrasound Report ---
US duplex renal artery CLINICAL HISTORY: Acute kidney injury. COMPARISON STUDY: Renal ultrasound 02/27/2015. Abdomen and pelvis CT 08/24/2020. FINDINGS: Bilateral renal cortices remain echogenic consistent with medical renal disease. Normal cor tical thickness within the kidneys. No hydronephrosis. Bilateral renal veins are patent. The peak sys tolic velocity within the proximal left renal artery was 57 cm/s in the distal right renal artery was 28 cm/s. The renal arcuate arteries were not well visualized. IMPRESSION: 1. No evidence for renal artery stenosis. 2. No hydronephrosis. 3. No change in the renal echogenicity consistent with medical renal disease. ACT 112: Negative or not required by law. Electronically signed by: Pankaj Pickard M.D. 08/26/2020 2:59 PM
[2020-08-26 15:05] LABS: Appearance Urine Clear (Clear); Bacteria Urine Automated Negative (Negative); Bilirubin Urine Negative (Negative); Blood Urine 2+ (Negative); Color Urine Yellow; Epithelial Cell Urine Auto 0-5 /lpf (0-5); Glucose Urine UA Negative (Negative); Ketones Urine Negative (Negative); Leukocyte Esterase Urine Negative (Negative); Nitrite Urine Negative (Negative); Protein Urine 3+ (Negative); Specific Gravity Urine 1.009 (1.000-1.030); Urobilinogen Urine Negative (Negative)
[2020-08-26] MEDS ORDERED: SODIUM CHLORIDE 0.9% 250 ML IV PRN (18:14)
--- NOTE | 2020-08-26 18:18 | Hospitalist Progress Note ---
Date of Service August 26, 2020 Assessment & Plan (1) Hematuria, microscopic: Plan: Patient is acute kidney injury with history of chronic kidney disease. Patient is hyperkalemic, hyponatremic, depressed carbon oxide BUN/creatinine of 76 and 5.94 no significant EKG changes but mild peaked T waves. Patient did receive dextrose and insulin in the ER be given patiromer orally. CT abdomen and pelvis does not show obstruction of renal system, renal size is normal and there is mild splenomegally Renal artery duplex shows no evidence of renal artery stenosis no hydronephrosis medical renal disease suggested given concern for nephritis will use daily solumedrol 1000mg position and prednisone 60 mg daily at time of discharge Since the patient does make urine and he is not in overt congestive heart failure For concern for glomerulonephritis patient has 24-hour urine started, ANCA SPEP Compliment levels, anti gbm, Hepatitis panel and peripheral smear, sent (2) COVID: Plan: Patient Covid test was positive in the ER this is a PCR test patient is asymptomatic and his family is also asymptomatic and they have been vaccinated but the patient has not. 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 airborne isolation Repeat Covid testing on 08/25/2020 is still persistently positive. His point of contact in the chart was notified because he does have close contact with his family they were made aware of his persistent positive status and told to self isolate at home versus to go get tested themselves. On admission his family had was asymptomatic at the time (3) Hyponatremia: Plan: Patient is significantly hyponatremic patient was given isotonic saline in the ER we will check a random urine sodium patient was given bicarbonate under the instruction of nephrology he will be given 500 additional Normosol Patient remains hyponatremic he is on fluid restriction at this time sodium is improved dramatically during his hospital stay (4) Hyperkalemia: Plan: Hyperkalemia treated in the emergency department with dextrose and insulin [place]it room air was given EKGs with very minor T wave changes will have on telemetry Potassium levels normal range on 08/26/2020 (5) CAD (coronary artery disease): Plan: 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 Nephrology does now feel need to transfuse at this time be given 1 unit, but did administer erythropoietin and iron that is iron deficient state on 08/25/2020. No other signs of blood loss at this time (6) Anemia: Plan: microcytic anemia, nephrology feels could be from blood loss or anemia of chronic disease erythropoietin and iron were administered. (7) Benign essential hypertension: Plan: continue coreg and amlodipine plus hydralazine Admission and Anticipated Discharge Date Admission Date: August 24, 2020 Subjective Patient feels well no events overnight agreeable to blood transfusion verbal consent obtained due to Covid isolation. 1 unit will be given due to his history of cardiac disease. Review of Systems Review of Systems: Mild distress and fatigue no headache, no visual changes no speech or swallowing issues no chest pain, pressure or palpitations no shortness of breath, continues persistent mild dyspnea on exertion, no cough or wheezes no abdominal pain, nausea or vomiting, diarrhea or constipation no dysuria, hematuria or frequency, some darkened urine but no gross hematuria no focal joint pain, does have persistent lower extremity swelling worse at the end of the day no back pain, CVA tenderness or radicular pain no bruising, bleeding or rashes no focal signs of weakness or numbness or altered sensation no complaints of anxiety or depression.. Physical Exam Physical Exam: The patient appeared well nourished and normally developed. Vital signs as documented. Head exam is normocephalic atraumatic Neck is without JVD, thyromegaly, or carotid bruits. Lungs are clear to auscultation, no focal loss of breath sounds Cardiac exam, Rhythm is regular.. No murmurs, rubs or gallops. Abdominal exam reveals normal bowel sounds, soft non tender, no masses, no organomegaly Extremities are 1+ edematous equal bilaterally, both pedal pulses are present Neurologic exam is alert and oriented, no focal loss of strength or sensation Skin is without bruises or rashes Psychologically is without concerns for anxiety or depression Results & Data Results & Data ([facility]) Vital Signs (Past 12 Hours) Vital Signs Temp Pulse Pulse Resp BP BP Pulse Ox 08/26/20 15:24 78 08/26/20 12:02 98.4 F 77 17 125/74 98 08/26/20 08:00 78 08/26/20 07:30 98.1 F 95 H 18 135/85 98 PG Care Time/CCT Total # of Minutes Spent Total Time Spent with Patient: Total time spent is greater than 50% in coordina tion of care (as documented) at patient's floor/unit and/or counseling patient: Coding Level of Care Code 56914 Subseq Hosp Care Lvl 2 Diagnoses Hematuria, microscopic R31.29 COVID U07.1 Hyponatremia E87.1 Hyperkalemia E87.5 CAD (coronary artery disease) I25.10 Coronary Disease-Associated Artery/Lesion type: [place] artery [place] vs. transplanted heart: [place] heart Associated angina: without angina Anemia D64.9 Benign essential hypertension I10 (1) CAD (coronary artery disease) Coronary Disease-Associated Artery/Lesion type: [place] artery [place] vs. tr ansplanted heart: [place] heart Associated angina: without angina Qualified Code(s): I25.10 - Atherosclerotic heart disease of [place] coronary artery without angina pectoris
[2020-08-27] MEDS ORDERED: CALCIUM ACETATE 667 MG CAP/TAB PO SCH (08:00)
[2020-08-27] MEDS: hydrALAZINE TAB 50 MG TAB PO SCH (08:24)
[2020-08-27] MEDS: amLODIPine BESYLATE 5 MG TAB PO SCH (08:24)
[2020-08-27] MEDS: PANTOprazole 40 MG TAB PO SCH (08:24)
[2020-08-27] MEDS: ASPIRIN 81 MG ECTAB PO SCH (08:24)
[2020-08-27] MEDS: SODIUM BICARBONATE 650 MG TAB PO SCH (08:24)
[2020-08-27] MEDS: carvediloL 25 MG TAB PO SCH (08:25)
[2020-08-27] MEDS: methylPREDNISolone 1,000 MG in DEXTROSE 5% 250 ML IV SCH (08:28)
[2020-08-27 08:37] LABS: Hematocrit (blood only) 24.4 % (42-52); Hemoglobin 8.2 g/dL (14.0-18.0); Mean Corpuscular Hemoglobin 26.3 pg (25-34); Mean Corpuscular Hgb Conc 33.6 g/dL (32-36); Mean Corpuscular Volume 78.2 fL (80-100); Mean Platelet Volume 8.8 fL (7.4-10.4); Platelet Count 193 K/uL (130-400); RDW Coefficient of Variation 15.3 % (11.5-14.5); RDW Standard Deviation 44.1 fL (36.4-46.3); Red Blood Count 3.12 M/uL (4.7-6.1); White Blood Count 4.24 K/uL (4.8-10.8)
[2020-08-27 08:50] LABS: Albumin Level 2.9 gm/dl (3.4-5.0); Calcium 7.9 mg/dl (8.5-10.1); Est GFR (African American) 10.7 ml/min; Est GFR (Non-African American) 9.2 ml/min; Potassium 4.3 mmol/L (3.5-5.1)
[2020-08-27 09:49] LABS: Phosphorus 4.8 mg/dl (2.5-4.9)
--- NOTE | 2020-08-27 10:53 | Nephrology Progress Note ---
Date of Service August 27, 2020 Assessment & Plan (1) TARA (acute kidney injury): Plan: * Time course of renal dysfunction is difficult to define. EMR reveals Cr 2.0 w/ EGFR 41 cc/min 11/29. Medical progress notes document a Cr 2.0 03/03. This has been associated w/ microscopic hematuria and high grade proteinuria despite hydroxychloroquine and prednisone therapy. Upon admission, Cr was 5.94 w/ PO4 6.3 and Hgb 6.8. 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 * Patient has completed 1g IV Solumedrol x3 days. He will transition to Prednisone 60 mg daily * Although patient is nonoliguric, Cr has risen further to 6.9. Sodium and po tassium remain acceptable. Patient has mild metabolic acidosis and is currently on NaHCO3 therapy. * Reviewed indications/benefits of transfer to tertiary care facility for kidney biopsy and ongoing medical management with patient today. He declined. He wishes to pursue biopsy on an outpatient basis * Renal artery doppler and CT reports reviewed: No BETTE. No hydronephrosis. Normal size kidneys. Mild symmetric perinephric infiltration reported (nonspecific finding) * Mr. Meng requested discharge to home with outpatient follow up. I explained that kidney function continues to decline despite medical management and he may require initiation of HD within the next 48-72 hours. I explained that it will be difficult to initiate HD on an outpatient basis and he is at high risk of readmission/ICU care/potentially . For these reasons, I explained that discharge from the hospital would need to be against medical advice. Mr. Meng voiced understanding (2) COVID: Plan: * COVID +. No respiratory or vasculitic symptoms (3) Hyperkalemia: Plan: * Resolved. Continue low K diet (4) Hyponatremia: Plan: * Mild, asymptomatic hyponatremia. Will monitor (5) Anemia: Plan: * Hgb has improved from 6.8 to 8.2 following 1 U PRBC * FOBT pending (6) Mixed connective tissue disease: Plan: * h/o MCTD - arthritis of the hands, positive ALISON. Managed w/ Hydroxychloroquine and Prednisone (7) Benign essential hypertension: Plan: * BP acceptable. Continue to hold losartan and spironolactone. Avoid RAAS blockade at this time. Admission and Anticipated Discharge Date Admission Date: August 24, 2020 Subjective Mr. Meng was seen and examined in his hospital room this morning. He reports good UO. He feels well and is anxious to be discharged to home. Review of Systems Constitutional: no fever and no weakness Eyes: no worsening vision Ear, Nose, Mouth, Throat: no nasal congestion, no sinus pain/pressure, no sore throat and no problem reported Respiratory: no cough, no dyspnea and no hemoptysis Cardiovascular: no chest pain, no palpitations and no edema Gastrointestinal: no abdominal pain, no nausea, no vomiting and no diarrhea/loose stools Genitourinary: no dysuria, no urinary hesitancy or no hematuria Musculoskeletal: no back pain Integumentary: no rash Neurologic: no falls, no dizziness and no confusion Physical Exam Constitutional: not in distress Eyes: PERRL, conjunctivae normal, anicteric sclerae ENMT: external ear and nose normal, oropharynx normal Neck: trachea midline, no thyromegaly Respiratory: normal respiratory effort, lungs clear to auscultation Cardiovascular: RRR, no murmur, no edema Gastrointestinal (Abdomen): normal bowel sounds, soft, nontender, no hepatosplenomegaly Musculoskeletal: Extremities: no cyanosis, no clubbing and no petechiae Skin: normal turgor; no rashes and no purpura Neurologic: awake; not confused Results & Data ([facility]) Vital Signs (Past 12 Hours) Vital Signs Temp Pulse Resp BP BP Pulse Ox 08/27/20 07:01 36.7 C 75 18 140/87 98 08/27/20 02:49 36.6 C 81 16 141/84 H 98 08/27/20 00:22 37.1 C 77 17 135/81 98 Laboratory Results Laboratory Tests 08/24/20 08/24/20 08/24/20 20:33 20:33 20:33 WBC Hgb Hct Plt Count Sodium Potassium Chloride Carbon Dioxide BUN Creatinine Calcium Phosphorus Albumin Serum Immunofixation Pending Urine Immunofixation ALISON Screen Pending Anti-Proteinase 3 Pending Anti-Myeloperoxidase Pending ANCA Pending Double Strand DNA Ab Pending Glomerular Base Memb Ab Pending Complement C3 Pending Complement C4 Pending Tot Complement (CH50) Pending SARS-CoV-2 (PCR) Hepatitis A IgM Ab Pending Hep Bs Antigen Neg Hep B Core IgM Ab Pending Hepatitis C Antibody Neg Phospholip A2 Rec IFA Pending Phospholip A2 Rec RG Pending 08/25/20 08/26/20 08/26/20 14:15 06:53 Unknown WBC Hgb Hct Plt Count Sodium Potassium Chloride Carbon Dioxide BUN Creatinine Calcium Phosphorus 6.3 H Albumin Serum Immunofixation Urine Immunofixation Pending ALISON Screen Anti-Proteinase 3 Anti-Myeloperoxidase ANCA Double Strand DNA Ab Glomerular Base Memb Ab Complement C3 Complement C4 Tot Complement (CH50) SARS-CoV-2 (PCR) POSITIVE A* Hepatitis A IgM Ab Hep Bs Antigen Hep B Core IgM Ab Hepatitis C Antibody Phospholip A2 Rec IFA Phospholip A2 Rec RG 08/27/20 08/27/20 07:32 07:33 WBC 4.24 L Hgb 8.2 L Hct 24.4 L Plt Count 193 Sodium 132 L Potassium 4.3 Chloride 102 Carbon Dioxide 18 L BUN 103 H Creatinine 6.89 H* D Calcium 7.9 L Phosphorus Albumin 2.9 L Serum Immunofixation Urine Immunofixation ALISON Screen Anti-Proteinase 3 Anti-Myeloperoxidase ANCA Double Strand DNA Ab Glomerular Base Memb Ab Complement C3 Complement C4 Tot Complement (CH50) SARS-CoV-2 (PCR) Hepatitis A IgM Ab Hep Bs Antigen Hep B Core IgM Ab Hepatitis C Antibody Phospholip A2 Rec IFA Phospholip A2 Rec RG Abdominal CT 08/24/20: Bladder wall thickening is unchanged. There is mild symmetric bilateral perinephric infiltration. There is no hydronephrosis. Renal size is normal. No urinary calculi are present. Renal artery duplex 08/26/20: No evidence for renal artery stenosis PG Care Time/CCT Total # of Minutes Spent Total Time Spent with Patient: Total time spent is greater than 50% in coordination of care (as documented) at patient's floor/unit and/or counseling patient: Coding Level of Care Code 87745 Subseq Hosp Care Lvl 3 Diagnoses TARA (acute kidney injury) N17.9 COVID U07.1 Hyperkalemia E87.5 Hyponatremia E87.1 Anemia D64.9 Mixed connective tissue disease M35.1 Benign essential hypertension I10
--- NOTE | 2020-08-27 17:30 | Discharge Summary ---
Date of Service August 27, 2020 Admission HPI Per Admitting Provider 40-year-old male has history of mixed connective tissue disorder and a distant NV from hypertensive cardiomyopathy presents with referral from his duco polisher for concerns for acute kidney injury with history of chronic kidney disease, acute anemia, and hematuria with possible nephritis associated with mixed connective tissue disorder. Incidentally the patient is also found to be Covid positive Patient otherwise has been feeling his normal self infected and working his normal job which involves construction. He typically has end of the day lower extremity edema he says this may be slightly worse over the last 2 weeks. He occasionally has dark urine which he attributes to being dehydrated from working outside and he feels this usually clears up in the evening when he drinks more liquids. He denies any other sources of blood loss or melanotic stools. He denies any epigastric pain. He has been taking Plaquenil and prednisone for a few years now does not feel he is having a flare of his arthritic symptoms. He denies any Covid related symptoms has not been around anyone with Covid but he also has not been vaccinated. He was in close contact with his parents who also have been vaccinated and are without symptoms. He says he is known he said "low kidney function" since he had his heart condition a few years ago. Principal Diagnosis Acute on chronic kidney disease Hyperkalemia Covid positive x2 recommend at home isolation for 11 days from the date of admission Anemia of chronic disease Discharge Exam The patient appeared well Vital signs as documented. Lungs are clear to auscultation and appear unlabored Cardiac exam, Rhythm is regular.. No murmurs, rubs or gallops. Abdominal exam reveals normal bowel sounds, soft non tender, no masses Extremities are nonedematous and both pedal pulses are normal. Neurologic exam is alert and oriented, no focal loss of strength or sensation Skin is without bruises or rashes Psychologically is without concerns for anxiety or depression. Discharge Data Allergies Allergy/AdvReac Type Severity Reaction Status Date / Time No Known Allergies Allergy Unverified 08/24/20 14:14 Consultations 08/24/20 13:41 ED Decision to Admit Stat 08/24/20 18:34 Consult Nephrology Routine Ordered Studies 08/24/20 13:30 CT abd pelvis wo con Stat 08/26/20 08:30 US duplex renal artery Routine Hospital Course (1) Hematuria, microscopic: Patient is acute kidney injury with history of chronic kidney disease stage IV. Patient is hyperkalemic, hyponatremic, depressed carbon oxide BUN/creatinine of 76 and 5.94 no significant EKG changes but mild peaked T waves. Patient did receive dextrose and insulin in the ER be given patiromer orally. CT abdomen and pelvis does not show obstruction of renal system, renal size is normal and there is mild splenomegally Renal artery duplex shows no evidence of renal artery stenosis no hydronephrosis medical renal disease suggested given concern for nephritis will use daily solumedrol 1000mg position and prednisone 60 mg daily at time of discharge Since the patient does make urine and he is not in overt congestive heart failure For concern for glomerulonephritis patient has 24-hour urine started, ANCA SPEP Compliment levels, anti gbm, Hepatitis panel and peripheral smear, sent (2) COVID: Patient Covid test was positive in the ER this is a PCR test patient is asymptomatic and his family is also asymptomatic and they have been vaccinated but the patient has not. 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 airborne isolation Repeat Covid testing on 08/25/2020 is still persistently positive. His point of contact in the chart was notified because he does have close contact with his family they were made aware of his persistent positive status and told to self isolate at home versus to go get tested themselves. On admission his family had was asymptomatic at the time At the time of discharge the patient is still without symptoms is recommended to be at home self-isolation for 11 days from his first test which is the day of admission (3) Hyponatremia: Patient is significantly hyponatremic patient was given isotonic saline in the ER we will check a random urine sodium patient was given bicarbonate under the instruction of nephrology he will be given 500 additional Normosol Hyponatremia is steadily improved during his hospital stay is 132 at time of discharge (4) Hyperkalemia: Hyperkalemia treated in the emergency department with dextrose and insulin Petit room air was given EKGs with very minor T wave changes will have on telemetry Potassium levels normal range on 08/27/2020 (5) CAD (coronary artery disease): 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 Nephrology does now feel need to transfuse at this time be given 1 unit, but did administer erythropoietin and iron that is iron deficient state on 08/25/2020. No other signs of blood loss at this time (6) Anemia: microcytic anemia, nephrology feels could be from blood loss or anemia of chronic disease erythropoietin and iron were administered. This is likely anemia of chronic disease patient received 1 unit packed red blood cells prior to discharge (7) Benign essential hypertension: continue coreg and amlodipine plus hydralazine Total Time Total Time Spent Total Time Spent (In Minutes): It required greater than 30 minutes to prepare this patient for discharge Discharge Plan Discharge Items Patient Disposition: Home - Self-Care Reason For Visit: ACUTE KIDNEY INJURY, ANEMIA Discharge Diagnosis: acute on chronic renal failure high potassium low sodium low blood count Activity: Per Instructions section Activity Comment: do not overexert yourself Non-emergency contact: Accounts Clerk Call non-emergency contact if: you have any medication questions and your symptoms worsen Follow-up/Referrals: Juan Summers III, CRNP [Primary Care Provider] - 09/06/20 9:20 am (Please follow up with LAWANDA Bergman on Saturday09/06/20 at 9:20 am. Please arrive to the office at 9:05 am for your appointment. If you are unable to keep this appointment, please call the office to reschedule at [phone].) Quique Buckley DO [Physician] - Diet: Low Potassium (2gm) Ambulatory Orders: Basic Metabolic Panel (Routine) Timeframe: 3 Days Location: Determined by Patient Ordered By: Krzysztof Newsome Complete Blood Count no Diff (Routine) Timeframe: 3 Days Location: Determined by Patient Ordered By: Krzysztof Newsome Phosphorus (Routine) Timeframe: 3 Days Location: Determined by Patient Ordered By: Krzysztof Newsome Addtl Attending Provider Instructions: please be sure to follow up with Dr Buckley to assure you have your renal biopsy done please have outpt blood work done on saturday Pending Studies at Discharge: Yes Stand-Alone Forms: My [employer], Smoking Cessation Medications and DC Order Prescriptions: New sodium bicarbonate 650 mg Tablet 1,300 mg PO TID Qty: 90 RF: 0 pantoprazole 40 mg Tablet,Delayed Release (Dr/Ec) 40 mg PO QAM Qty: 30 RF: 0 calcium acetate(phosphat bind) 667 mg Capsule 667 mg PO TIDM Qty: 90 RF: 0 prednisone 20 mg tablet 60 mg PO DAILY Qty: 90 RF: 0 Continued carvedilol 25 mg tablet 25 mg PO BID Qty: 180 RF: 1 aspirin 81 mg tablet,chewable 1 tab PO QAM RF: 0 amlodipine 10 mg tablet 10 mg PO QAM RF: 0 hydralazine 100 mg tablet 100 mg PO BID RF: 0 Discontinued prednisone 5 mg Tablet 5 mg PO QAM RF: 0 naproxen sodium [Aleve] 220 mg Tablet 220 mg PO Q12H PRN (Reason: Pain) RF: 0 spironolactone 25 mg tablet 25 mg PO QAM RF: 0 losartan 25 mg tablet 25 mg PO QAM RF: 0 hydroxychloroquine [Plaquenil] 200 mg tablet 200 mg PO QAM RF: 0 Discharge Orders: Discharge Order (Routine); Ordered 08/27/20 Ordered By: Krzysztof Francisco/Other Patient Handouts: Hyperkalemia Dc Admission Data Admit Date/Time: 08/24/20 14:54 Attending Provider: Krzysztof Newsome Admit Provider: Krzysztof Newsome Primary Care Provider: Juan Summers III Other Providers: Krzysztof Newsome ; Quique Buckley Other Interventions: Discharge Summary Assessment (RN) Last Done: 08/27/20 10:51 Coding Level of Care Code D/C DAY MANAGEMENT >30 MINS Diagnoses Hematuria, microscopic R31.29 COVID U07.1 Hyponatremia E87.1 Hyperkalemia E87.5 CAD (coronary artery disease) I25.10 Coronary Disease-Associated Artery/Lesion type: [place] artery [place] vs. transplanted heart: [place] heart Associated angina: without angina Anemia D64.9 Benign essential hypertension I10
[2020-08-29 11:16] LABS: ANCA Screen P-ANCA POS (Negative); Anti-Glom Basement Antibody <1.0 AI (<1.0); Myeloperoxidase Ab 2.1 AI (<1.0); Proteinase-3 AB <1.0 AI (<1.0)
[2020-08-29 12:22] LABS: P-ANCA(Reflex Only Do Not Ord >1:640 Titer (<1:20)
--- NOTE | 2020-08-29 16:21 | Hospitalist Progress Note ---
Date of Service August 29, 2020 Assessment & Plan (1) Renal failure: Plan: Called about lab results, stable hgb, K, na but rising BUN/CR, I spoke to Dr Buckley, and also the pt, he is feeling well, Dr Buckley recommends continue outpt treatment and recheck labs this week, with coordindination of outpt renal biopsy as soon as able, will speak to Dr Reese office and try to help arrange outpt blood work Admission and Anticipated Discharge Date Admission Date: August 24, 2020 PG Care Time/CCT Total # of Minutes Spent Total Time Spent with Patient: Total time spent is greater than 50% in coordination of care (as documented) at patient's floor/unit and/or counseling patient: Coding Level of Care Code None Diagnoses Renal failure N19
[2020-08-30 13:36] LABS: Abnormal Protein Band 1 DNR mg/24 h (NONE DETECTED); Abnormal Protein Band 2 DNR mg/24 h (NONE DETECTED); Abnormal Protein Band 3 DNR mg/24 h (NONE DETECTED); Creatinine, 24 hr Urine 0.95 g/24 h (0.50-2.15); Protein, Urine 24 Hour 4450 mg/24 h (<150); Ur Protein/Creatinine Rat mg/g 4684 mg/g creat (< OR = 114); Urine Protein/Creatinine Ratio 4.684 (< OR = 0.114)
[2020-08-31 23:46] LABS: ANA Pattern Nuclear, Homogeneous; ANA Titer > OR = 1:1280 titer; ANCA Screen Negative (Negative); Albumin 3.7 g/dL (3.8-4.8); Alpha 1 Globulin 0.4 g/dL (0.2-0.3); Alpha 2 Globulin 0.7 g/dL (0.5-0.9); Anti Nuclear Antibody Screen POSITIVE (NEGATIVE); Anti-dsDNA Recombinant 3 IU/mL; Beta-1-Globulin 0.5 g/dL (0.4-0.6); Beta-2-Globulin 0.4 g/dL (0.2-0.5); Complement C3 65 mg/dL (82-185); Complement Total(CH50) >60 U/mL (31-60); Gamma Globulin 2.1 g/dL (0.8-1.7); Hepatitis A Antibody IgM NON-REACTIVE (NON-REACTIVE); Hepatitis B Core Antibody IgM NON-REACTIVE (NON-REACTIVE); Monoclonal Protein Band 1 DNR g/dL (NONE DETECTED); Monoclonal Protein Band 2 DNR g/dL (NONE DETECTED); Monoclonal Protein Band 3 DNR g/dL (NONE DETECTED); Total Protein 7.9 g/dL (6.1-8.1)
== END 2020-08-27 11:36 | disposition home or self-care (01) | DRG 682 ==
LOC: ED 11:25 → 2S 14:54